=== PATIENT | male | born 1955 | race Caucasian/White ===

== ENCOUNTER 2018-11-20 15:27 | Inpatient (IN) ==
[2018-11-20] MEDS ORDERED: HYDROmorphone 2 MG/1 ML VIAL IV STA (15:35)
[2018-11-20] MEDS ORDERED: ONDANSETRON 4 MG/2 ML VIAL IV STA (15:35)
[2018-11-20] MEDS ORDERED: GENTAMICIN INJ 140 MG in SODIUM CHLORIDE 0.9% 100 ML IV STA (15:36)
[2018-11-20] MEDS ORDERED: PROPOFOL 200 MG/20 ML VIAL IV ONE ×2 (15:48→18:06)
[2018-11-20 16:11] LABS: Basophils % 0.4 % (0.0-0.8); Eosinophils # 0.1 10*3/uL (0.0-0.87); Eosinophils % 0.9 % (0.00-10.9); Hematocrit 40.8 VOL% (42.0-52.0); Hemoglobin 12.9 GM/DL (14.0-18.0); Immature Granulocytes % 0.7 %; Immature Granulocytes Absolute 0.08 #; Lymphocytes # 1.2 10*3/uL (1.4-4.0); Lymphocytes % 10.2 % (21.2-54.2); Mean Corpuscular HGB Conc 31.6 GM/DL (32-36); Mean Corpuscular Volume 97.8 FL (87-102); Mean Platelet Volume 9.5 FL (9.6-12.0); Neutrophils % 79.8 % (38.7-73.9); Platelet Count 245 T/CUMM (130-400); Red Blood Count 4.17 MC/CUMM (3.8-5.5); Red Cell Distribution Width 13.4 % (9.3-17.3); White Blood Count 11.3 T/CUMM (4-12)
[2018-11-20] MEDS ORDERED: DIPH/TET/ACEL PERT BOOSTER VACCINE 0.5 ML VIAL IM ONE ×2 (16:15→16:16)
[2018-11-20 16:22] LABS: PT Patient Result 10.6 SECS (9.6-12.2); Partial Thromboplastin Time 23.7 SECS (20.8-36.0)
[2018-11-20] MEDS ORDERED: LACTULOSE 20 GM/30 ML UDCUP PO PRN (16:27)
[2018-11-20] MEDS ORDERED: MAGNESIUM HYDROXIDE SUSP 30 ML UDCUP PO PRN (16:27)
[2018-11-20] MEDS ORDERED: ONDANSETRON 4 MG/2 ML VIAL IV PRN ×2 (16:27→16:40)
[2018-11-20] MEDS ORDERED: PROMETHAZINE 25 MG/1 ML VIAL IM PRN (16:27)
[2018-11-20] MEDS ORDERED: BISACODYL 10 MG SUPP RECTAL PRN (16:27)
[2018-11-20] MEDS ORDERED: DEXTROSE 50% 25 GM/50 ML VIAL IV PRN (16:32)
[2018-11-20] MEDS ORDERED: GLUCAGON 1 MG VIAL IM PRN (16:32)
[2018-11-20 16:34] LABS: Albumin 3.6 G/DL (3.4-5.0); Bilirubin,Total 0.4 MG/DL (0.2-1.0); Calcium 9.1 MG/DL (8.5-10.1); Osmolality,Calculated 278.8 MOS/KG (273-304); Total Protein 7.6 G/DL (6.4-8.3)
[2018-11-20] MEDS ORDERED: MEPERIDINE 25 MG/1 ML VIAL IV PRN (16:40)
[2018-11-20] MEDS ORDERED: PROMETHAZINE INJ 25 MG in SODIUM CHLORIDE 0.9% 50 ML IV PRN (16:40)
[2018-11-20] MEDS ORDERED: SUGAMMADEX 200 MG/2 ML VIAL IV ONE (17:56)
[2018-11-20] MEDS ORDERED: ALBUTEROL/IPRATROPIUM 3 ML NEB RESP TX ONE (17:58)
[2018-11-20] MEDS ORDERED: DESFLURANE 1 UNIT/15 MINUTE INH ONE (18:06)
[2018-11-20] MEDS ORDERED: GLYCOPYRROLATE 0.4 MG/2 ML VIAL ONE (18:07)
[2018-11-20] MEDS ORDERED: SUCCINYLCHOLINE 200 MG/10 ML VIAL ONE (18:07)
[2018-11-20] MEDS ORDERED: NEOSTIGMINE 10 MG/10 ML VIAL ONE (18:07)
[2018-11-20] MEDS ORDERED: ROCURONIUM 100 MG/10 ML VIAL IV ONE (18:07)
[2018-11-20] MEDS ORDERED: ePHEDrine 50 MG/ML AMP ONE (18:07)
[2018-11-20] MEDS ORDERED: PHENYLEPHRINE 1 MG/10 ML SYRINGE IV ONE (18:07)
[2018-11-20] MEDS ORDERED: LACTATED RINGERS 1,000 ML IV ONE (18:07)
[2018-11-20] MEDS ORDERED: ACETAMINOPHEN 1,000 MG/100 ML VIAL IV ONE (18:07)
[2018-11-20] MEDS: LACTATED RINGERS 1,000 ML IV SCH (19:00)
[2018-11-20] MEDS: SIMVASTATIN 20 MG TABLET PO SCH (21:28)
[2018-11-20] MEDS: AMITRIPTYLINE 50 MG TABLET PO SCH (21:29)
[2018-11-20] MEDS: metFORMIN 500 MG TABLET PO SCH (21:29)
[2018-11-20] MEDS: INSULIN REGULAR 100 UNIT/ML SUBCUT SCH (21:31)
[2018-11-20] MEDS: INSULIN ASPART PROTAMINE/ASPART 70/30 100 UNIT/ML SUBCUT SCH (21:31)
[2018-11-20] MEDS: MORPHINE 4 MG/1 ML VIAL IV PRN (23:23)
[2018-11-21] MEDS: ceFAZolin 1,000 MG in SYRINGE 1 EACH IV SCH ×3 (00:59→16:24)
[2018-11-21] MEDS: MORPHINE 4 MG/1 ML VIAL IV PRN ×2 (03:03→12:51)
[2018-11-21] MEDS: LACTATED RINGERS 1,000 ML IV SCH ×2 (04:36→12:30)
[2018-11-21] MEDS: LEVOTHYROXINE 175 MCG TABLET PO SCH (06:55)
[2018-11-21] MEDS: GABAPENTIN 600 MG TABLET PO PRN (07:19)
[2018-11-21] MEDS: INSULIN REGULAR 100 UNIT/ML SUBCUT SCH ×4 (07:30→21:13)
[2018-11-21] MEDS: metFORMIN 500 MG TABLET PO SCH ×2 (09:00→20:53)
[2018-11-21] MEDS ORDERED: LISINOPRIL 5 MG TABLET PO SCH (09:00)
[2018-11-21] MEDS: ASPIRIN EC 81 MG TABLET PO SCH (09:00)
[2018-11-21] MEDS: INSULIN ASPART PROTAMINE/ASPART 70/30 100 UNIT/ML SUBCUT SCH ×2 (09:00→21:09)
[2018-11-21] MEDS ORDERED: FUROSEMIDE 40 MG/4 ML VIAL IV ONE (16:35)
[2018-11-21] MEDS: ENOXAPARIN 40 MG/0.4 ML SYRINGE SUBCUT SCH (16:45)
[2018-11-21] MEDS: ALBUTEROL/IPRATROPIUM 3 ML NEB RESP TX SCH ×2 (19:39→23:43)
[2018-11-21] MEDS: SIMVASTATIN 20 MG TABLET PO SCH (20:53)
[2018-11-21] MEDS: AMITRIPTYLINE 50 MG TABLET PO SCH (20:53)
[2018-11-21] MEDS: methylPREDNISolone SOD SUC 40 MG/1 ML VIAL IV SCH (21:21)
[2018-11-22] MEDS: ceFAZolin 1,000 MG in SYRINGE 1 EACH IV SCH ×3 (01:13→16:16)
[2018-11-22] MEDS: ALBUTEROL/IPRATROPIUM 3 ML NEB RESP TX SCH ×6 (02:20→22:51)
[2018-11-22 05:29] LABS: Basophils % 0.2 % (0.0-0.8); Hematocrit 36.2 VOL% (42.0-52.0); Hemoglobin 11.7 GM/DL (14.0-18.0); Immature Granulocytes % 0.7 %; Immature Granulocytes Absolute 0.09 #; Lymphocytes # 0.6 10*3/uL (1.4-4.0); Lymphocytes % 4.2 % (21.2-54.2); Mean Corpuscular HGB Conc 32.3 GM/DL (32-36); Mean Corpuscular Volume 97.1 FL (87-102); Mean Platelet Volume 9.4 FL (9.6-12.0); Monocytes % 8.1 % (1.7-12.7); Neutrophils % 86.8 % (38.7-73.9); Platelet Count 200 T/CUMM (130-400); Red Blood Count 3.73 MC/CUMM (3.8-5.5); Red Cell Distribution Width 13.9 % (9.3-17.3); White Blood Count 13.1 T/CUMM (4-12)
[2018-11-22] MEDS: LACTATED RINGERS 1,000 ML IV SCH ×2 (05:53→08:30)
[2018-11-22 05:55] LABS: Calcium 9.1 MG/DL (8.5-10.1); Osmolality,Calculated 276.2 MOS/KG (273-304)
[2018-11-22 06:02] LABS: Band Neutrophils 3 % (0-10); Lymphocytes 6 % (20-55); Platelet Estimate Normal; Segmented Neutrophils 89 % (50-85); Total Cells Counted 100
[2018-11-22] MEDS: LEVOTHYROXINE 175 MCG TABLET PO SCH (06:12)
[2018-11-22] MEDS: ASPIRIN EC 81 MG TABLET PO SCH (08:33)
[2018-11-22] MEDS: methylPREDNISolone SOD SUC 40 MG/1 ML VIAL IV SCH ×3 (08:35→23:02)
[2018-11-22] MEDS: INSULIN ASPART PROTAMINE/ASPART 70/30 100 UNIT/ML SUBCUT SCH ×2 (08:38→20:22)
[2018-11-22] MEDS: INSULIN REGULAR 100 UNIT/ML SUBCUT SCH ×4 (08:39→23:02)
[2018-11-22] MEDS: metFORMIN 500 MG TABLET PO SCH ×2 (09:26→20:03)
[2018-11-22] MEDS: GABAPENTIN 600 MG TABLET PO PRN ×2 (12:10→20:03)
[2018-11-22] MEDS: MORPHINE 4 MG/1 ML VIAL IV PRN (16:27)
[2018-11-22] MEDS: ENOXAPARIN 40 MG/0.4 ML SYRINGE SUBCUT SCH (17:22)
[2018-11-22] MEDS: AMITRIPTYLINE 50 MG TABLET PO SCH (20:03)
[2018-11-22] MEDS: SIMVASTATIN 20 MG TABLET PO SCH (20:03)
[2018-11-22] MEDS ORDERED: DULoxetine 30 MG CAPSULE PO SCH (21:00)
[2018-11-23] MEDS: ceFAZolin 1,000 MG in SYRINGE 1 EACH IV SCH ×3 (00:49→16:48)
[2018-11-23] MEDS: ALBUTEROL/IPRATROPIUM 3 ML NEB RESP TX SCH ×6 (02:43→23:40)
[2018-11-23 06:11] LABS: Free T4 (Free Thyroxine) 1.13 NG/DL (0.76-1.46); Thyroid Stimulating Hormone 1.09 uIU/ml (0.358-3.74)
[2018-11-23] MEDS: sitaGLIPtin 25 MG TABLET PO SCH (08:55)
[2018-11-23] MEDS: metFORMIN 500 MG TABLET PO SCH ×2 (09:01→20:47)
[2018-11-23] MEDS: CYCLOBENZAPRINE 10 MG TABLET PO PRN ×3 (09:01→20:48)
[2018-11-23] MEDS: LEVOTHYROXINE 175 MCG TABLET PO SCH (09:01)
[2018-11-23] MEDS: INSULIN REGULAR 100 UNIT/ML SUBCUT SCH ×4 (09:03→20:50)
[2018-11-23] MEDS: INSULIN ASPART PROTAMINE/ASPART 70/30 100 UNIT/ML SUBCUT SCH ×2 (09:03→20:49)
[2018-11-23] MEDS: ASPIRIN EC 81 MG TABLET PO SCH (09:05)
[2018-11-23] MEDS: methylPREDNISolone SOD SUC 40 MG/1 ML VIAL IV SCH (09:14)
[2018-11-23 10:40] LABS: Basophils % 0.1 % (0.0-0.8); Hematocrit 37.4 VOL% (42.0-52.0); Hemoglobin 11.7 GM/DL (14.0-18.0); Immature Granulocytes % 0.7 %; Immature Granulocytes Absolute 0.09 #; Lymphocytes # 0.9 10*3/uL (1.4-4.0); Lymphocytes % 6.4 % (21.2-54.2); Mean Corpuscular HGB Conc 31.3 GM/DL (32-36); Mean Corpuscular Volume 97.9 FL (87-102); Mean Platelet Volume 9.3 FL (9.6-12.0); Monocytes % 6.3 % (1.7-12.7); Neutrophils % 86.5 % (38.7-73.9); Platelet Count 249 T/CUMM (130-400); Red Blood Count 3.82 MC/CUMM (3.8-5.5); Red Cell Distribution Width 13.9 % (9.3-17.3); White Blood Count 13.7 T/CUMM (4-12)
[2018-11-23 11:03] LABS: Calcium 9.9 MG/DL (8.5-10.1); Osmolality,Calculated 283.1 MOS/KG (273-304)
[2018-11-23 11:18] LABS: CKMB % 0.4 %; Troponin I < 0.015 NG/ML (0.00-0.045)
[2018-11-23] MEDS: ENOXAPARIN 40 MG/0.4 ML SYRINGE SUBCUT SCH (16:40)
[2018-11-23] MEDS: DULoxetine 30 MG CAPSULE PO SCH (20:47)
[2018-11-23] MEDS: AMITRIPTYLINE 50 MG TABLET PO SCH (20:48)
[2018-11-23] MEDS: GABAPENTIN 600 MG TABLET PO PRN (20:48)
[2018-11-23] MEDS: SIMVASTATIN 20 MG TABLET PO SCH (20:48)
[2018-11-24] MEDS: ceFAZolin 1,000 MG in SYRINGE 1 EACH IV SCH ×3 (02:25→16:51)
[2018-11-24] MEDS: ALBUTEROL/IPRATROPIUM 3 ML NEB RESP TX SCH ×6 (04:10→23:04)
[2018-11-24] MEDS ORDERED: DIAZEPAM 5 MG TABLET PO ONE (06:00)
[2018-11-24] MEDS ORDERED: FAMOTIDINE 20 MG TABLET PO ONE (06:00)
[2018-11-24] MEDS: LEVOTHYROXINE 175 MCG TABLET PO SCH (06:06)
[2018-11-24] MEDS ORDERED: GLUCAGON 1 MG VIAL IM PRN (07:07)
[2018-11-24] MEDS ORDERED: DEXTROSE 10% 250 ML BAG IV PRN (07:07)
[2018-11-24 07:27] LABS: Basophils % 0.2 % (0.0-0.8); Eosinophils % 0.2 % (0.00-10.9); Hematocrit 35.8 VOL% (42.0-52.0); Hemoglobin 11.4 GM/DL (14.0-18.0); Immature Granulocytes % 0.8 %; Immature Granulocytes Absolute 0.09 #; Lymphocytes # 1.3 10*3/uL (1.4-4.0); Lymphocytes % 11.8 % (21.2-54.2); Mean Corpuscular HGB Conc 31.8 GM/DL (32-36); Mean Corpuscular Volume 98.4 FL (87-102); Mean Platelet Volume 9.7 FL (9.6-12.0); Monocytes % 10.4 % (1.7-12.7); Neutrophils % 76.6 % (38.7-73.9); Platelet Count 263 T/CUMM (130-400); Red Blood Count 3.64 MC/CUMM (3.8-5.5); Red Cell Distribution Width 13.9 % (9.3-17.3)
[2018-11-24] MEDS ORDERED: GENTAMICIN 80 MG/2 ML VIAL ONE (07:27)
[2018-11-24] MEDS ORDERED: LACTATED RINGERS 1,000 ML IV SCH (07:30)
[2018-11-24 07:42] LABS: Calcium 9.3 MG/DL (8.5-10.1); Osmolality,Calculated 286.7 MOS/KG (273-304)
[2018-11-24] MEDS ORDERED: fentaNYL 100 MCG/2 ML VIAL ONE (08:21)
[2018-11-24] MEDS ORDERED: ONDANSETRON 4 MG/2 ML VIAL ONE (08:21)
[2018-11-24] MEDS ORDERED: MIDAZOLAM 2 MG/2 ML VIAL ONE (08:21)
[2018-11-24] MEDS ORDERED: PROPOFOL 200 MG/20 ML VIAL IV ONE (08:21)
[2018-11-24] MEDS ORDERED: ACETAMINOPHEN 1,000 MG/100 ML VIAL IV ONE (08:21)
[2018-11-24] MEDS ORDERED: SODIUM CHLORIDE 0.9% 100 ML IV ONE (08:22)
[2018-11-24] MEDS ORDERED: SEVOFLURANE 1 UNIT/15 MINUTE INH ONE (08:22)
[2018-11-24] MEDS ORDERED: PHENYLEPHRINE 1 MG/10 ML SYRINGE IV ONE (08:22)
[2018-11-24] MEDS: INSULIN REGULAR 100 UNIT/ML SUBCUT SCH ×4 (11:07→20:28)
[2018-11-24] MEDS: sitaGLIPtin 25 MG TABLET PO SCH (11:08)
[2018-11-24] MEDS: metFORMIN 500 MG TABLET PO SCH ×2 (11:08→20:28)
[2018-11-24] MEDS: INSULIN ASPART PROTAMINE/ASPART 70/30 100 UNIT/ML SUBCUT SCH ×2 (11:08→20:28)
[2018-11-24] MEDS: ASPIRIN EC 81 MG TABLET PO SCH (11:08)
[2018-11-24] MEDS: ENOXAPARIN 40 MG/0.4 ML SYRINGE SUBCUT SCH (16:53)
[2018-11-24] MEDS: DULoxetine 30 MG CAPSULE PO SCH (20:32)
[2018-11-24] MEDS: AMITRIPTYLINE 50 MG TABLET PO SCH (20:32)
[2018-11-24] MEDS: SIMVASTATIN 20 MG TABLET PO SCH (20:32)
[2018-11-25] MEDS: ceFAZolin 1,000 MG in SYRINGE 1 EACH IV SCH ×2 (01:28→08:24)
[2018-11-25] MEDS: ALBUTEROL/IPRATROPIUM 3 ML NEB RESP TX SCH ×3 (03:27→11:14)
[2018-11-25] MEDS: MORPHINE 4 MG/1 ML VIAL IV PRN (05:35)
[2018-11-25] MEDS: LEVOTHYROXINE 175 MCG TABLET PO SCH (06:00)
[2018-11-25] MEDS: metFORMIN 500 MG TABLET PO SCH (08:20)
[2018-11-25] MEDS: ASPIRIN EC 81 MG TABLET PO SCH (08:20)
[2018-11-25] MEDS: GABAPENTIN 600 MG TABLET PO PRN (08:20)
[2018-11-25] MEDS: sitaGLIPtin 25 MG TABLET PO SCH (08:20)
[2018-11-25] MEDS: INSULIN ASPART PROTAMINE/ASPART 70/30 100 UNIT/ML SUBCUT SCH (08:22)
[2018-11-25] MEDS: INSULIN REGULAR 100 UNIT/ML SUBCUT SCH (08:22)
[2018-11-25 11:47] VITALS: BP 90/60
== END 2018-11-25 13:15 | disposition home or self-care (01) | DRG 494 ==
LOC: EDUNIT# → EDBD → N.ED 15:27 → SUATTDRO 16:27 → N.EDINP 16:27 → N.3E 16:30
PROVIDERS: ADMIT Orthopaedic Surgery; ATTEND Orthopaedic Surgery

== ENCOUNTER 2018-12-09 14:52 | Inpatient (IN) ==
[2018-12-09] MEDS ORDERED: TEMAZEPAM 15 MG CAPSULE PO PRN (16:29)
[2018-12-09] MEDS ORDERED: metFORMIN 500 MG TABLET PO SCH (17:00)
[2018-12-09] MEDS ORDERED: GLUCAGON 1 MG VIAL IM PRN ×2 (17:03→20:26)
[2018-12-09] MEDS ORDERED: DEXTROSE 10% 25 GM/250 ML BAG IV PRN (17:03)
[2018-12-09 17:13] LABS: Basophils # 0.1 10*3/uL (0.0-0.2); Basophils % 0.5 % (0.0-0.8); Eosinophils # 0.1 10*3/uL (0.0-0.87); Eosinophils % 0.9 % (0.00-10.9); Hematocrit 36.4 VOL% (42.0-52.0); Hemoglobin 11.4 GM/DL (14.0-18.0); Immature Granulocytes % 0.7 %; Immature Granulocytes Absolute 0.08 #; Lymphocytes # 1.1 10*3/uL (1.4-4.0); Lymphocytes % 9.1 % (21.2-54.2); Mean Corpuscular HGB Conc 31.3 GM/DL (32-36); Mean Corpuscular Volume 98.1 FL (87-102); Mean Platelet Volume 8.3 FL (9.6-12.0); Monocytes % 9.2 % (1.7-12.7); Neutrophils % 79.6 % (38.7-73.9); Platelet Count 457 T/CUMM (130-400); Red Blood Count 3.71 MC/CUMM (3.8-5.5); Red Cell Distribution Width 13.3 % (9.3-17.3); White Blood Count 11.8 T/CUMM (4-12)
[2018-12-09 17:35] LABS: Osmolality,Calculated 270.2 MOS/KG (273-304)
[2018-12-09] MEDS: MORPHINE 4 MG/1 ML VIAL IV PRN (18:25)
[2018-12-09] MEDS: ONDANSETRON 4 MG/2 ML VIAL IV PRN (18:38)
[2018-12-09] MEDS ORDERED: DEXTROSE 10% 250 ML BAG IV PRN (20:26)
[2018-12-09] MEDS ORDERED: INSULIN REGULAR 100 UNIT/ML SUBCUT SCH (21:00)
[2018-12-09] MEDS ORDERED: SIMVASTATIN 20 MG TABLET PO SCH (21:00)
[2018-12-09] MEDS ORDERED: AMITRIPTYLINE 50 MG TABLET PO SCH (21:00)
[2018-12-09] MEDS: INSULIN LISPRO 100 UNIT/ML SUBCUT SCH (22:14)
[2018-12-09] MEDS: PIPERACILLIN/TAZOBACTAM 3,375 MG in SODIUM CHLORIDE 0.9% 100 ML IV SCH (22:31)
[2018-12-09] MEDS: AMITRIPTYLINE 50 MG TABLET PO SCH (22:32)
[2018-12-09] MEDS: SIMVASTATIN 20 MG TABLET PO SCH (22:32)
[2018-12-09] MEDS: SODIUM CHLORIDE 0.9% 1,000 ML IV SCH (22:34)
[2018-12-10] MEDS ORDERED: SODIUM CHLORIDE 0.9% 1,000 ML IV ONE ×3 (00:55→11:23)
[2018-12-10] MEDS ORDERED: VANCOMYCIN INJ 1,500 MG in SODIUM CHLORIDE 0.9% 500 ML IV SCH (01:00)
[2018-12-10 01:39] LABS: Basophils # 0.1 10*3/uL (0.0-0.2); Basophils % 0.5 % (0.0-0.8); Eosinophils # 0.2 10*3/uL (0.0-0.87); Eosinophils % 1.5 % (0.00-10.9); Hematocrit 31.3 VOL% (42.0-52.0); Hemoglobin 9.8 GM/DL (14.0-18.0); Immature Granulocytes % 0.5 %; Immature Granulocytes Absolute 0.05 #; Lymphocytes # 2.5 10*3/uL (1.4-4.0); Lymphocytes % 22.9 % (21.2-54.2); Mean Corpuscular HGB Conc 31.3 GM/DL (32-36); Mean Corpuscular Volume 96.9 FL (87-102); Mean Platelet Volume 8.3 FL (9.6-12.0); Monocytes % 10.7 % (1.7-12.7); Neutrophils % 63.9 % (38.7-73.9); Platelet Count 395 T/CUMM (130-400); Red Blood Count 3.23 MC/CUMM (3.8-5.5); Red Cell Distribution Width 13.5 % (9.3-17.3); White Blood Count 10.9 T/CUMM (4-12)
[2018-12-10 02:03] LABS: Calcium 8.1 MG/DL (8.5-10.1); Osmolality,Calculated 276.1 MOS/KG (273-304); Risk Ratio 2.76; VLDL CHOLESTEROL 23.6 MG/DL
[2018-12-10] MEDS: MORPHINE 4 MG/1 ML VIAL IV PRN ×4 (04:24→19:08)
[2018-12-10] MEDS: SODIUM CHLORIDE 0.9% 1,000 ML IV SCH ×2 (04:30→11:59)
[2018-12-10] MEDS ORDERED: LEVOTHYROXINE 75 MCG TABLET PO SCH (06:30)
[2018-12-10] MEDS: PIPERACILLIN/TAZOBACTAM 3,375 MG in SODIUM CHLORIDE 0.9% 100 ML IV SCH ×3 (06:44→21:51)
[2018-12-10] MEDS: LEVOTHYROXINE 175 MCG TABLET PO SCH (07:10)
[2018-12-10] MEDS ORDERED: INSULIN ASPART PROTAMINE/ASPART 70/30 100 UNIT/ML SUBCUT SCH (07:30)
[2018-12-10] MEDS ORDERED: glipiZIDE 5 MG TABLET PO SCH (07:30)
[2018-12-10] MEDS ORDERED: ASPIRIN CHEW 81 MG TABLET PO SCH (09:00)
[2018-12-10] MEDS ORDERED: lisinopriL 5 MG TABLET PO SCH (09:00)
[2018-12-10] MEDS: lisinopriL 5 MG TABLET PO SCH (09:21)
[2018-12-10] MEDS: INSULIN LISPRO 100 UNIT/ML SUBCUT SCH ×4 (09:24→21:45)
[2018-12-10] MEDS: ASPIRIN EC 81 MG TABLET PO SCH (09:24)
[2018-12-10] MEDS ORDERED: ALBUTEROL/IPRATROPIUM 3 ML NEB RESP TX ONE (10:05)
[2018-12-10 10:17] LABS: Allen Test Positive; Pt O2 Delivery Device Other
[2018-12-10 10:18] LABS: ABG Base Excess -1.5 MMOL/L (-2.5-2.5); ABG HCO3 23.2 MMOL/L (20-26); ABG PCO2 41.5 MM HG (35-48); ABG PH 7.367 (7.35-7.45); ABG TCO2 21.2 MMOL/L (23-27)
[2018-12-10 10:44] LABS: Troponin I < 0.015 NG/ML (0.00-0.045)
[2018-12-10] MEDS ORDERED: LACTULOSE 20 GM/30 ML UDCUP PO PRN (11:07)
[2018-12-10] MEDS ORDERED: PROMETHAZINE 25 MG/1 ML VIAL IM PRN (11:07)
[2018-12-10] MEDS ORDERED: BISACODYL 10 MG SUPP RECTAL PRN (11:07)
[2018-12-10] MEDS ORDERED: diphenhydrAMINE CAP 25 MG CAPSULE PO PRN (11:07)
[2018-12-10] MEDS ORDERED: MAGNESIUM HYDROXIDE SUSP 30 ML UDCUP PO PRN (11:07)
[2018-12-10] MEDS ORDERED: fentaNYL 100 MCG/2 ML VIAL ONE (11:22)
[2018-12-10] MEDS ORDERED: MIDAZOLAM 2 MG/2 ML VIAL ONE (11:23)
[2018-12-10] MEDS ORDERED: ETOMIDATE 40 MG/20 ML VIAL IV ONE (11:23)
[2018-12-10] MEDS ORDERED: SEVOFLURANE 1 UNIT/15 MINUTE INH ONE (11:23)
[2018-12-10] MEDS ORDERED: ONDANSETRON 4 MG/2 ML VIAL ONE (11:23)
[2018-12-10] MEDS ORDERED: PHENYLEPHRINE 1 MG/10 ML SYRINGE IV ONE (11:23)
[2018-12-10] MEDS ORDERED: propofoL 200 MG/20 ML VIAL IV ONE (11:23)
[2018-12-10] MEDS: LACTATED RINGERS 1,000 ML IV SCH (12:22)
[2018-12-10] MEDS: INSULIN ASPART PROTAMINE/ASPART 70/30 100 UNIT/ML SUBCUT SCH (17:14)
[2018-12-10] MEDS: metFORMIN 500 MG TABLET PO SCH (21:44)
[2018-12-10] MEDS: AMITRIPTYLINE 50 MG TABLET PO SCH (21:45)
[2018-12-10] MEDS: SIMVASTATIN 20 MG TABLET PO SCH (21:45)
[2018-12-11] MEDS: SODIUM CHLORIDE 0.9% 1,000 ML IV SCH ×3 (00:47→22:17)
[2018-12-11] MEDS: VANCOMYCIN INJ 1,500 MG in SODIUM CHLORIDE 0.9% 500 ML IV SCH (02:29)
[2018-12-11] MEDS: LEVOTHYROXINE 175 MCG TABLET PO SCH (06:15)
[2018-12-11] MEDS: PIPERACILLIN/TAZOBACTAM 3,375 MG in SODIUM CHLORIDE 0.9% 100 ML IV SCH ×3 (07:16→22:40)
[2018-12-11 10:50] LABS: Calcium 8.8 MG/DL (8.5-10.1); Osmolality,Calculated 284.4 MOS/KG (273-304)
[2018-12-11] MEDS: INSULIN LISPRO 100 UNIT/ML SUBCUT SCH ×4 (10:56→21:26)
[2018-12-11] MEDS: INSULIN ASPART PROTAMINE/ASPART 70/30 100 UNIT/ML SUBCUT SCH ×2 (10:56→17:12)
[2018-12-11] MEDS: ASPIRIN EC 81 MG TABLET PO SCH (11:01)
[2018-12-11] MEDS: metFORMIN 500 MG TABLET PO SCH ×2 (11:01→21:22)
[2018-12-11] MEDS: lisinopriL 5 MG TABLET PO SCH (11:03)
[2018-12-11] MEDS: MORPHINE 4 MG/1 ML VIAL IV PRN ×3 (11:07→21:22)
[2018-12-11] MEDS: SIMVASTATIN 20 MG TABLET PO SCH (21:22)
[2018-12-11] MEDS: AMITRIPTYLINE 50 MG TABLET PO SCH (21:22)
[2018-12-11] MEDS: LACTATED RINGERS 1,000 ML IV SCH (22:43)
[2018-12-12] MEDS: VANCOMYCIN INJ 1,500 MG in SODIUM CHLORIDE 0.9% 500 ML IV SCH (00:55)
[2018-12-12] MEDS: PIPERACILLIN/TAZOBACTAM 3,375 MG in SODIUM CHLORIDE 0.9% 100 ML IV SCH ×3 (05:58→21:22)
[2018-12-12] MEDS: LEVOTHYROXINE 175 MCG TABLET PO SCH (06:00)
[2018-12-12 06:05] LABS: Calcium 8.7 MG/DL (8.5-10.1); Osmolality,Calculated 283.3 MOS/KG (273-304)
[2018-12-12] MEDS ORDERED: ALBUTEROL/IPRATROPIUM 3 ML NEB RESP TX ONE (07:28)
[2018-12-12] MEDS: SODIUM CHLORIDE 0.9% 1,000 ML IV SCH ×3 (08:04→21:02)
[2018-12-12] MEDS: INSULIN LISPRO 100 UNIT/ML SUBCUT SCH ×4 (08:04→21:21)
[2018-12-12] MEDS: INSULIN ASPART PROTAMINE/ASPART 70/30 100 UNIT/ML SUBCUT SCH ×2 (08:04→17:07)
[2018-12-12] MEDS ORDERED: DEXTROSE 50% 25 GM/50 ML VIAL IV PRN (08:44)
[2018-12-12] MEDS ORDERED: GLUCAGON 1 MG VIAL IM PRN (08:44)
[2018-12-12] MEDS ORDERED: MIDAZOLAM 2 MG/2 ML VIAL ONE (09:00)
[2018-12-12] MEDS ORDERED: DEXAMETHASONE 4 MG/1 ML VIAL ONE (09:00)
[2018-12-12] MEDS ORDERED: ONDANSETRON 4 MG/2 ML VIAL ONE (09:00)
[2018-12-12] MEDS ORDERED: SEVOFLURANE 1 UNIT/15 MINUTE INH ONE (09:00)
[2018-12-12] MEDS ORDERED: fentaNYL 100 MCG/2 ML VIAL ONE (09:00)
[2018-12-12] MEDS ORDERED: LIDOCAINE 2% 5 ML VIAL ONE (09:00)
[2018-12-12] MEDS ORDERED: propofoL 200 MG/20 ML VIAL IV ONE (09:00)
[2018-12-12] MEDS ORDERED: PHENYLEPHRINE 1 MG/10 ML SYRINGE IV ONE (09:01)
[2018-12-12] MEDS ORDERED: ETOMIDATE 40 MG/20 ML VIAL IV ONE (09:01)
[2018-12-12] MEDS: ASPIRIN EC 81 MG TABLET PO SCH (10:57)
[2018-12-12] MEDS: POLYETHYLENE GLYCOL POWDER 17 GM PACK PO SCH ×2 (10:57→21:22)
[2018-12-12] MEDS: DOCUSATE/SENNA 50-8.6 MG TABLET PO SCH ×2 (10:57→21:22)
[2018-12-12] MEDS: metFORMIN 500 MG TABLET PO SCH ×2 (10:58→21:21)
[2018-12-12] MEDS: LACTATED RINGERS 1,000 ML IV SCH ×2 (10:58→23:58)
[2018-12-12] MEDS: lisinopriL 5 MG TABLET PO SCH (10:58)
[2018-12-12] MEDS ORDERED: INSULIN REGULAR 100 UNIT/ML SUBCUT SCH (11:30)
[2018-12-12] MEDS: MORPHINE 4 MG/1 ML VIAL IV PRN ×2 (16:10→19:18)
[2018-12-12] MEDS: AMITRIPTYLINE 50 MG TABLET PO SCH (21:20)
[2018-12-12] MEDS: SIMVASTATIN 20 MG TABLET PO SCH (21:22)
[2018-12-13] MEDS: VANCOMYCIN INJ 1,500 MG in SODIUM CHLORIDE 0.9% 500 ML IV SCH (01:26)
[2018-12-13] MEDS: SODIUM CHLORIDE 0.9% 1,000 ML IV SCH ×2 (04:04→14:04)
[2018-12-13 06:07] LABS: Basophils % 0.4 % (0.0-0.8); Eosinophils # 0.1 10*3/uL (0.0-0.87); Eosinophils % 1.8 % (0.00-10.9); Hematocrit 29.3 VOL% (42.0-52.0); Hemoglobin 9.2 GM/DL (14.0-18.0); Immature Granulocytes % 0.4 %; Immature Granulocytes Absolute 0.03 #; Lymphocytes # 1.7 10*3/uL (1.4-4.0); Lymphocytes % 23.9 % (21.2-54.2); Mean Corpuscular HGB Conc 31.4 GM/DL (32-36); Mean Corpuscular Volume 96.1 FL (87-102); Mean Platelet Volume 8.7 FL (9.6-12.0); Monocytes % 7.6 % (1.7-12.7); Neutrophils % 65.9 % (38.7-73.9); Platelet Count 383 T/CUMM (130-400); Red Blood Count 3.05 MC/CUMM (3.8-5.5); Red Cell Distribution Width 12.9 % (9.3-17.3); White Blood Count 7.1 T/CUMM (4-12)
[2018-12-13 06:14] LABS: Calcium 8.8 MG/DL (8.5-10.1); Osmolality,Calculated 281.4 MOS/KG (273-304)
[2018-12-13] MEDS: PIPERACILLIN/TAZOBACTAM 3,375 MG in SODIUM CHLORIDE 0.9% 100 ML IV SCH ×2 (06:39→14:05)
[2018-12-13] MEDS: LEVOTHYROXINE 175 MCG TABLET PO SCH (06:39)
[2018-12-13] MEDS: INSULIN ASPART PROTAMINE/ASPART 70/30 100 UNIT/ML SUBCUT SCH ×2 (08:04→17:11)
[2018-12-13] MEDS: INSULIN LISPRO 100 UNIT/ML SUBCUT SCH ×4 (08:04→21:29)
[2018-12-13] MEDS: MORPHINE 4 MG/1 ML VIAL IV PRN ×3 (09:04→21:23)
[2018-12-13] MEDS: ASPIRIN EC 81 MG TABLET PO SCH (09:10)
[2018-12-13] MEDS: metFORMIN 500 MG TABLET PO SCH ×2 (09:10→21:29)
[2018-12-13] MEDS: lisinopriL 5 MG TABLET PO SCH (09:10)
[2018-12-13] MEDS: POLYETHYLENE GLYCOL POWDER 17 GM PACK PO SCH ×2 (09:10→21:28)
[2018-12-13] MEDS: DOCUSATE/SENNA 50-8.6 MG TABLET PO SCH ×2 (09:10→21:28)
[2018-12-13] MEDS: ENOXAPARIN 30 MG/0.3 ML SYRINGE SUBCUT SCH (09:47)
[2018-12-13] MEDS: SIMVASTATIN 20 MG TABLET PO SCH (21:23)
[2018-12-13] MEDS: AMITRIPTYLINE 50 MG TABLET PO SCH (21:23)
[2018-12-14] MEDS: PIPERACILLIN/TAZOBACTAM 3,375 MG in SODIUM CHLORIDE 0.9% 100 ML IV SCH ×3 (00:03→17:13)
[2018-12-14] MEDS: LACTATED RINGERS 1,000 ML IV SCH ×2 (04:29→15:53)
[2018-12-14] MEDS: SODIUM CHLORIDE 0.9% 1,000 ML IV SCH (04:31)
[2018-12-14] MEDS: VANCOMYCIN INJ 1,500 MG in SODIUM CHLORIDE 0.9% 500 ML IV SCH (06:34)
[2018-12-14] MEDS: LEVOTHYROXINE 175 MCG TABLET PO SCH (06:34)
[2018-12-14] MEDS: INSULIN ASPART PROTAMINE/ASPART 70/30 100 UNIT/ML SUBCUT SCH ×2 (08:06→16:24)
[2018-12-14] MEDS: INSULIN LISPRO 100 UNIT/ML SUBCUT SCH ×4 (08:06→21:08)
[2018-12-14] MEDS: lisinopriL 5 MG TABLET PO SCH (08:39)
[2018-12-14] MEDS: POLYETHYLENE GLYCOL POWDER 17 GM PACK PO SCH ×2 (08:39→21:08)
[2018-12-14] MEDS: metFORMIN 500 MG TABLET PO SCH ×2 (08:39→21:07)
[2018-12-14] MEDS: ASPIRIN EC 81 MG TABLET PO SCH (08:39)
[2018-12-14] MEDS: DOCUSATE/SENNA 50-8.6 MG TABLET PO SCH ×2 (08:39→21:09)
[2018-12-14] MEDS: ENOXAPARIN 30 MG/0.3 ML SYRINGE SUBCUT SCH (11:52)
[2018-12-14] MEDS: MORPHINE 4 MG/1 ML VIAL IV PRN (15:53)
[2018-12-14] MEDS: SIMVASTATIN 20 MG TABLET PO SCH (21:07)
[2018-12-14] MEDS: AMITRIPTYLINE 50 MG TABLET PO SCH (21:07)
[2018-12-15] MEDS: MORPHINE 4 MG/1 ML VIAL IV PRN ×3 (01:16→21:45)
[2018-12-15] MEDS: PIPERACILLIN/TAZOBACTAM 3,375 MG in SODIUM CHLORIDE 0.9% 100 ML IV SCH ×3 (01:17→17:29)
[2018-12-15 05:39] LABS: Basophils % 0.6 % (0.0-0.8); Eosinophils # 0.3 10*3/uL (0.0-0.87); Eosinophils % 4.4 % (0.00-10.9); Hematocrit 29.8 VOL% (42.0-52.0); Hemoglobin 9.5 GM/DL (14.0-18.0); Immature Granulocytes % 0.4 %; Immature Granulocytes Absolute 0.03 #; Lymphocytes # 1.4 10*3/uL (1.4-4.0); Lymphocytes % 20.6 % (21.2-54.2); Mean Corpuscular HGB Conc 31.9 GM/DL (32-36); Mean Corpuscular Volume 96.4 FL (87-102); Mean Platelet Volume 8.2 FL (9.6-12.0); Platelet Count 326 T/CUMM (130-400); Red Blood Count 3.09 MC/CUMM (3.8-5.5); White Blood Count 6.9 T/CUMM (4-12)
[2018-12-15 06:10] LABS: Calcium 8.9 MG/DL (8.5-10.1)
[2018-12-15] MEDS: VANCOMYCIN INJ 1,500 MG in SODIUM CHLORIDE 0.9% 500 ML IV SCH (06:14)
[2018-12-15] MEDS: LEVOTHYROXINE 175 MCG TABLET PO SCH (06:15)
[2018-12-15] MEDS: DOCUSATE/SENNA 50-8.6 MG TABLET PO SCH ×2 (09:26→21:44)
[2018-12-15] MEDS: ASPIRIN EC 81 MG TABLET PO SCH (09:26)
[2018-12-15] MEDS: metFORMIN 500 MG TABLET PO SCH ×2 (09:26→21:47)
[2018-12-15] MEDS: POLYETHYLENE GLYCOL POWDER 17 GM PACK PO SCH ×2 (09:27→21:45)
[2018-12-15] MEDS: INSULIN ASPART PROTAMINE/ASPART 70/30 100 UNIT/ML SUBCUT SCH ×2 (09:27→16:57)
[2018-12-15] MEDS: lisinopriL 5 MG TABLET PO SCH (09:27)
[2018-12-15] MEDS: INSULIN LISPRO 100 UNIT/ML SUBCUT SCH ×4 (09:34→21:49)
[2018-12-15] MEDS: ENOXAPARIN 30 MG/0.3 ML SYRINGE SUBCUT SCH (10:27)
[2018-12-15] MEDS: SIMVASTATIN 20 MG TABLET PO SCH (21:48)
[2018-12-15] MEDS: AMITRIPTYLINE 50 MG TABLET PO SCH (21:48)
[2018-12-16] MEDS: PIPERACILLIN/TAZOBACTAM 3,375 MG in SODIUM CHLORIDE 0.9% 100 ML IV SCH ×3 (01:46→22:51)
[2018-12-16] MEDS ORDERED: FAMOTIDINE 20 MG TABLET PO ONE (06:00)
[2018-12-16] MEDS ORDERED: ALBUTEROL/IPRATROPIUM 3 ML NEB RESP TX ONE (06:00)
[2018-12-16] MEDS: VANCOMYCIN INJ 1,500 MG in SODIUM CHLORIDE 0.9% 500 ML IV SCH (06:14)
[2018-12-16] MEDS: LEVOTHYROXINE 175 MCG TABLET PO SCH (06:14)
[2018-12-16] MEDS: INSULIN LISPRO 100 UNIT/ML SUBCUT SCH ×2 (09:44→12:39)
[2018-12-16] MEDS: DOCUSATE/SENNA 50-8.6 MG TABLET PO SCH ×2 (09:45→23:00)
[2018-12-16] MEDS: metFORMIN 500 MG TABLET PO SCH ×2 (09:45→22:34)
[2018-12-16] MEDS: lisinopriL 5 MG TABLET PO SCH (09:45)
[2018-12-16] MEDS: INSULIN ASPART PROTAMINE/ASPART 70/30 100 UNIT/ML SUBCUT SCH ×2 (09:45→16:47)
[2018-12-16] MEDS: POLYETHYLENE GLYCOL POWDER 17 GM PACK PO SCH ×2 (09:45→23:00)
[2018-12-16] MEDS: ASPIRIN EC 81 MG TABLET PO SCH (09:45)
[2018-12-16] MEDS ORDERED: GLUCAGON 1 MG VIAL IM PRN (10:46)
[2018-12-16] MEDS ORDERED: DEXTROSE 50% 25 GM/50 ML VIAL IV PRN (10:46)
[2018-12-16] MEDS ORDERED: LIDOCAINE 100 MG/5 ML SYRINGE ONE (10:49)
[2018-12-16] MEDS ORDERED: SEVOFLURANE 1 UNIT/15 MINUTE INH ONE (10:49)
[2018-12-16] MEDS ORDERED: propofoL 200 MG/20 ML VIAL IV ONE (10:49)
[2018-12-16] MEDS ORDERED: ePHEDrine 50 MG/ML AMP ONE (10:50)
[2018-12-16] MEDS ORDERED: fentaNYL 100 MCG/2 ML VIAL ONE (10:50)
[2018-12-16] MEDS ORDERED: DEXAMETHASONE 4 MG/1 ML VIAL ONE (10:50)
[2018-12-16] MEDS ORDERED: MIDAZOLAM 2 MG/2 ML VIAL ONE (10:50)
[2018-12-16] MEDS ORDERED: PHENYLEPHRINE 1 MG/10 ML SYRINGE IV ONE (10:51)
[2018-12-16] MEDS ORDERED: ONDANSETRON 4 MG/2 ML VIAL ONE (10:51)
[2018-12-16] MEDS ORDERED: ACETAMINOPHEN 1,000 MG/100 ML VIAL IV ONE (10:51)
[2018-12-16] MEDS: ENOXAPARIN 30 MG/0.3 ML SYRINGE SUBCUT SCH (12:03)
[2018-12-16] MEDS: INSULIN REGULAR 100 UNIT/ML SUBCUT SCH ×3 (12:39→22:33)
[2018-12-16] MEDS: MORPHINE 4 MG/1 ML VIAL IV PRN ×2 (19:29→22:49)
[2018-12-16] MEDS: TAMSULOSIN 0.4 MG CAPSULE PO SCH (22:32)
[2018-12-16] MEDS: AMITRIPTYLINE 50 MG TABLET PO SCH (22:32)
[2018-12-16] MEDS: SIMVASTATIN 20 MG TABLET PO SCH (22:33)
[2018-12-17 04:41] LABS: Basophils % 0.5 % (0.0-0.8); Eosinophils # 0.2 10*3/uL (0.0-0.87); Hematocrit 27.9 VOL% (42.0-52.0); Hemoglobin 8.7 GM/DL (14.0-18.0); Immature Granulocytes % 0.5 %; Immature Granulocytes Absolute 0.03 #; Lymphocytes # 1.2 10*3/uL (1.4-4.0); Lymphocytes % 19.1 % (21.2-54.2); Mean Corpuscular HGB Conc 31.2 GM/DL (32-36); Mean Corpuscular Volume 96.9 FL (87-102); Mean Platelet Volume 8.7 FL (9.6-12.0); Monocytes % 8.3 % (1.7-12.7); Neutrophils % 68.6 % (38.7-73.9); Platelet Count 337 T/CUMM (130-400); Red Blood Count 2.88 MC/CUMM (3.8-5.5); Red Cell Distribution Width 13.2 % (9.3-17.3); White Blood Count 6.4 T/CUMM (4-12)
[2018-12-17 05:10] LABS: Calcium 8.5 MG/DL (8.5-10.1); Osmolality,Calculated 288.8 MOS/KG (273-304)
[2018-12-17] MEDS: PIPERACILLIN/TAZOBACTAM 3,375 MG in SODIUM CHLORIDE 0.9% 100 ML IV SCH ×3 (05:42→21:41)
[2018-12-17] MEDS: LEVOTHYROXINE 175 MCG TABLET PO SCH (06:29)
[2018-12-17] MEDS: FINASTERIDE 5 MG TABLET PO SCH (08:52)
[2018-12-17] MEDS: metFORMIN 500 MG TABLET PO SCH ×2 (08:52→21:47)
[2018-12-17] MEDS: ASPIRIN EC 81 MG TABLET PO SCH (08:52)
[2018-12-17] MEDS: DOCUSATE/SENNA 50-8.6 MG TABLET PO SCH ×2 (08:52→21:46)
[2018-12-17] MEDS: INSULIN ASPART PROTAMINE/ASPART 70/30 100 UNIT/ML SUBCUT SCH ×2 (08:52→16:30)
[2018-12-17] MEDS: INSULIN REGULAR 100 UNIT/ML SUBCUT SCH ×4 (08:53→21:49)
[2018-12-17] MEDS: POLYETHYLENE GLYCOL POWDER 17 GM PACK PO SCH ×2 (08:53→21:47)
[2018-12-17] MEDS: ENOXAPARIN 30 MG/0.3 ML SYRINGE SUBCUT SCH (12:05)
[2018-12-17] MEDS: MORPHINE 4 MG/1 ML VIAL IV PRN ×2 (13:26→16:45)
[2018-12-17] MEDS: TAMSULOSIN 0.4 MG CAPSULE PO SCH (21:46)
[2018-12-17] MEDS: AMITRIPTYLINE 50 MG TABLET PO SCH (21:47)
[2018-12-17] MEDS: SIMVASTATIN 20 MG TABLET PO SCH (21:47)
[2018-12-18 04:53] LABS: Basophils % 0.5 % (0.0-0.8); Eosinophils # 0.4 10*3/uL (0.0-0.87); Eosinophils % 5.5 % (0.00-10.9); Hematocrit 29.2 VOL% (42.0-52.0); Immature Granulocytes % 0.5 %; Immature Granulocytes Absolute 0.03 #; Lymphocytes # 1.3 10*3/uL (1.4-4.0); Lymphocytes % 18.9 % (21.2-54.2); Mean Corpuscular HGB Conc 30.8 GM/DL (32-36); Mean Platelet Volume 8.6 FL (9.6-12.0); Monocytes % 9.2 % (1.7-12.7); Neutrophils % 65.4 % (38.7-73.9); Platelet Count 343 T/CUMM (130-400); Red Blood Count 2.98 MC/CUMM (3.8-5.5); Red Cell Distribution Width 13.5 % (9.3-17.3); White Blood Count 6.6 T/CUMM (4-12)
[2018-12-18 05:11] LABS: Calcium 8.9 MG/DL (8.5-10.1)
[2018-12-18] MEDS: PIPERACILLIN/TAZOBACTAM 3,375 MG in SODIUM CHLORIDE 0.9% 100 ML IV SCH (05:35)
[2018-12-18] MEDS: LEVOTHYROXINE 175 MCG TABLET PO SCH (06:34)
[2018-12-18] MEDS: INSULIN REGULAR 100 UNIT/ML SUBCUT SCH ×4 (07:19→21:20)
[2018-12-18] MEDS: INSULIN ASPART PROTAMINE/ASPART 70/30 100 UNIT/ML SUBCUT SCH ×2 (08:36→16:32)
[2018-12-18] MEDS: DOCUSATE/SENNA 50-8.6 MG TABLET PO SCH ×2 (08:37→21:21)
[2018-12-18] MEDS: POLYETHYLENE GLYCOL POWDER 17 GM PACK PO SCH ×2 (08:37→21:20)
[2018-12-18] MEDS: FINASTERIDE 5 MG TABLET PO SCH (08:47)
[2018-12-18] MEDS: metFORMIN 500 MG TABLET PO SCH ×2 (08:47→21:20)
[2018-12-18] MEDS: ASPIRIN EC 81 MG TABLET PO SCH (08:47)
[2018-12-18] MEDS: LEVOFLOXACIN 750 MG TABLET PO SCH (08:50)
[2018-12-18] MEDS: ENOXAPARIN 30 MG/0.3 ML SYRINGE SUBCUT SCH (13:16)
[2018-12-18] MEDS: MORPHINE 4 MG/1 ML VIAL IV PRN (13:17)
[2018-12-18] MEDS: TAMSULOSIN 0.4 MG CAPSULE PO SCH (21:17)
[2018-12-18] MEDS: SIMVASTATIN 20 MG TABLET PO SCH (21:18)
[2018-12-18] MEDS: AMITRIPTYLINE 50 MG TABLET PO SCH (21:18)
[2018-12-19 05:14] LABS: Hemoglobin 8.7 GM/DL (14.0-18.0); Red Blood Count 2.88 MC/CUMM (3.8-5.5); White Blood Count 7.4 T/CUMM (4-12)
[2018-12-19 05:15] LABS: Basophils % 0.4 % (0.0-0.8); Eosinophils # 0.4 10*3/uL (0.0-0.87); Eosinophils % 5.3 % (0.00-10.9); Immature Granulocytes % 0.3 %; Immature Granulocytes Absolute 0.02 #; Lymphocytes # 1.4 10*3/uL (1.4-4.0); Lymphocytes % 19.1 % (21.2-54.2); Mean Corpuscular HGB Conc 31.1 GM/DL (32-36); Mean Corpuscular Volume 97.2 FL (87-102); Mean Platelet Volume 8.7 FL (9.6-12.0); Monocytes % 8.5 % (1.7-12.7); Neutrophils % 66.4 % (38.7-73.9); Platelet Count 328 T/CUMM (130-400); Red Cell Distribution Width 13.4 % (9.3-17.3)
[2018-12-19 05:46] LABS: Calcium 8.5 MG/DL (8.5-10.1); Osmolality,Calculated 283.1 MOS/KG (273-304)
[2018-12-19] MEDS: LEVOTHYROXINE 175 MCG TABLET PO SCH (06:34)
[2018-12-19] MEDS: POLYETHYLENE GLYCOL POWDER 17 GM PACK PO SCH ×2 (08:51→20:35)
[2018-12-19] MEDS: LEVOFLOXACIN 750 MG TABLET PO SCH (08:52)
[2018-12-19] MEDS: metFORMIN 500 MG TABLET PO SCH ×2 (08:52→20:25)
[2018-12-19] MEDS: FINASTERIDE 5 MG TABLET PO SCH (08:52)
[2018-12-19] MEDS: ASPIRIN EC 81 MG TABLET PO SCH (08:52)
[2018-12-19] MEDS: DOCUSATE/SENNA 50-8.6 MG TABLET PO SCH ×2 (08:52→20:26)
[2018-12-19] MEDS: INSULIN REGULAR 100 UNIT/ML SUBCUT SCH ×4 (08:56→20:35)
[2018-12-19] MEDS: INSULIN ASPART PROTAMINE/ASPART 70/30 100 UNIT/ML SUBCUT SCH ×3 (08:56→16:42)
[2018-12-19] MEDS: MORPHINE 4 MG/1 ML VIAL IV PRN ×2 (10:40→20:30)
[2018-12-19] MEDS: ENOXAPARIN 30 MG/0.3 ML SYRINGE SUBCUT SCH (11:04)
[2018-12-19] MEDS: TAMSULOSIN 0.4 MG CAPSULE PO SCH (20:26)
[2018-12-19] MEDS: AMITRIPTYLINE 50 MG TABLET PO SCH (20:26)
[2018-12-19] MEDS: SIMVASTATIN 20 MG TABLET PO SCH (20:26)
[2018-12-20 05:04] LABS: Basophils % 0.5 % (0.0-0.8); Eosinophils # 0.4 10*3/uL (0.0-0.87); Eosinophils % 4.8 % (0.00-10.9); Hematocrit 29.9 VOL% (42.0-52.0); Hemoglobin 9.2 GM/DL (14.0-18.0); Immature Granulocytes % 0.5 %; Immature Granulocytes Absolute 0.04 #; Lymphocytes # 1.3 10*3/uL (1.4-4.0); Lymphocytes % 16.6 % (21.2-54.2); Mean Corpuscular HGB Conc 30.8 GM/DL (32-36); Mean Corpuscular Volume 98.7 FL (87-102); Mean Platelet Volume 8.7 FL (9.6-12.0); Monocytes % 8.9 % (1.7-12.7); Neutrophils % 68.7 % (38.7-73.9); Platelet Count 332 T/CUMM (130-400); Red Blood Count 3.03 MC/CUMM (3.8-5.5); Red Cell Distribution Width 13.5 % (9.3-17.3); White Blood Count 7.8 T/CUMM (4-12)
[2018-12-20 05:20] LABS: Calcium 8.9 MG/DL (8.5-10.1); Osmolality,Calculated 286.8 MOS/KG (273-304)
[2018-12-20] MEDS: LEVOTHYROXINE 175 MCG TABLET PO SCH (06:27)
[2018-12-20] MEDS: LEVOFLOXACIN 750 MG TABLET PO SCH (08:32)
[2018-12-20] MEDS: FINASTERIDE 5 MG TABLET PO SCH (08:32)
[2018-12-20] MEDS: metFORMIN 500 MG TABLET PO SCH ×2 (08:32→20:59)
[2018-12-20] MEDS: ASPIRIN EC 81 MG TABLET PO SCH (08:32)
[2018-12-20] MEDS: INSULIN REGULAR 100 UNIT/ML SUBCUT SCH ×4 (08:34→21:01)
[2018-12-20] MEDS: INSULIN ASPART PROTAMINE/ASPART 70/30 100 UNIT/ML SUBCUT SCH ×2 (08:35→17:05)
[2018-12-20] MEDS: POLYETHYLENE GLYCOL POWDER 17 GM PACK PO SCH ×2 (08:35→21:00)
[2018-12-20] MEDS: DOCUSATE/SENNA 50-8.6 MG TABLET PO SCH ×2 (08:36→20:59)
[2018-12-20] MEDS: ENOXAPARIN 40 MG/0.4 ML SYRINGE SUBCUT SCH (10:58)
[2018-12-20] MEDS: MORPHINE 4 MG/1 ML VIAL IV PRN (12:15)
[2018-12-20] MEDS: TAMSULOSIN 0.4 MG CAPSULE PO SCH (21:00)
[2018-12-20] MEDS: SIMVASTATIN 20 MG TABLET PO SCH (21:00)
[2018-12-20] MEDS: AMITRIPTYLINE 50 MG TABLET PO SCH (21:00)
[2018-12-21] MEDS: MORPHINE 4 MG/1 ML VIAL IV PRN (01:10)
[2018-12-21 04:53] LABS: Basophils % 0.3 % (0.0-0.8); Eosinophils # 0.3 10*3/uL (0.0-0.87); Eosinophils % 3.5 % (0.00-10.9); Hematocrit 29.5 VOL% (42.0-52.0); Hemoglobin 9.2 GM/DL (14.0-18.0); Immature Granulocytes % 0.6 %; Immature Granulocytes Absolute 0.05 #; Lymphocytes # 1.1 10*3/uL (1.4-4.0); Lymphocytes % 12.9 % (21.2-54.2); Mean Corpuscular HGB Conc 31.2 GM/DL (32-36); Mean Corpuscular Volume 98.7 FL (87-102); Monocytes % 7.5 % (1.7-12.7); Neutrophils % 75.2 % (38.7-73.9); Platelet Count 325 T/CUMM (130-400); Red Blood Count 2.99 MC/CUMM (3.8-5.5); Red Cell Distribution Width 13.6 % (9.3-17.3); White Blood Count 8.7 T/CUMM (4-12)
[2018-12-21 05:16] LABS: Calcium 9.2 MG/DL (8.5-10.1); Osmolality,Calculated 288.7 MOS/KG (273-304)
[2018-12-21] MEDS: LEVOTHYROXINE 175 MCG TABLET PO SCH (06:27)
[2018-12-21] MEDS: metFORMIN 500 MG TABLET PO SCH ×2 (08:52→20:39)
[2018-12-21] MEDS: FINASTERIDE 5 MG TABLET PO SCH (08:52)
[2018-12-21] MEDS: ASPIRIN EC 81 MG TABLET PO SCH (08:52)
[2018-12-21] MEDS: LEVOFLOXACIN 750 MG TABLET PO SCH (08:53)
[2018-12-21] MEDS: INSULIN REGULAR 100 UNIT/ML SUBCUT SCH ×4 (08:55→21:24)
[2018-12-21] MEDS: INSULIN ASPART PROTAMINE/ASPART 70/30 100 UNIT/ML SUBCUT SCH ×2 (08:56→18:35)
[2018-12-21] MEDS: ENOXAPARIN 40 MG/0.4 ML SYRINGE SUBCUT SCH (09:34)
[2018-12-21] MEDS: POLYETHYLENE GLYCOL POWDER 17 GM PACK PO SCH ×2 (09:34→20:40)
[2018-12-21] MEDS: DOCUSATE/SENNA 50-8.6 MG TABLET PO SCH ×2 (09:34→20:40)
[2018-12-21] MEDS: AMITRIPTYLINE 50 MG TABLET PO SCH (20:39)
[2018-12-21] MEDS: TAMSULOSIN 0.4 MG CAPSULE PO SCH (20:39)
[2018-12-21] MEDS: SIMVASTATIN 20 MG TABLET PO SCH (20:39)
[2018-12-22 04:43] LABS: Basophils % 0.3 % (0.0-0.8); Eosinophils # 0.4 10*3/uL (0.0-0.87); Eosinophils % 4.2 % (0.00-10.9); Hematocrit 30.8 VOL% (42.0-52.0); Hemoglobin 9.6 GM/DL (14.0-18.0); Immature Granulocytes % 0.5 %; Immature Granulocytes Absolute 0.04 #; Lymphocytes # 1.1 10*3/uL (1.4-4.0); Lymphocytes % 12.2 % (21.2-54.2); Mean Corpuscular HGB Conc 31.2 GM/DL (32-36); Mean Corpuscular Volume 97.5 FL (87-102); Mean Platelet Volume 9.1 FL (9.6-12.0); Monocytes % 8.4 % (1.7-12.7); Neutrophils % 74.4 % (38.7-73.9); Platelet Count 322 T/CUMM (130-400); Red Blood Count 3.16 MC/CUMM (3.8-5.5); Red Cell Distribution Width 13.5 % (9.3-17.3); White Blood Count 8.6 T/CUMM (4-12)
[2018-12-22] MEDS: MORPHINE 4 MG/1 ML VIAL IV PRN ×2 (04:46→20:21)
[2018-12-22] MEDS: LEVOTHYROXINE 175 MCG TABLET PO SCH (06:27)
[2018-12-22] MEDS: INSULIN ASPART PROTAMINE/ASPART 70/30 100 UNIT/ML SUBCUT SCH ×2 (08:09→16:32)
[2018-12-22] MEDS: INSULIN REGULAR 100 UNIT/ML SUBCUT SCH ×4 (08:15→21:32)
[2018-12-22] MEDS: POLYETHYLENE GLYCOL POWDER 17 GM PACK PO SCH ×2 (08:56→20:26)
[2018-12-22] MEDS: LEVOFLOXACIN 750 MG TABLET PO SCH (08:56)
[2018-12-22] MEDS: metFORMIN 500 MG TABLET PO SCH ×2 (08:56→20:21)
[2018-12-22] MEDS: ASPIRIN EC 81 MG TABLET PO SCH (08:56)
[2018-12-22] MEDS: FINASTERIDE 5 MG TABLET PO SCH (08:56)
[2018-12-22] MEDS: DOCUSATE/SENNA 50-8.6 MG TABLET PO SCH ×2 (08:56→20:21)
[2018-12-22] MEDS: ONDANSETRON 4 MG/2 ML VIAL IV PRN (10:16)
[2018-12-22] MEDS: ENOXAPARIN 40 MG/0.4 ML SYRINGE SUBCUT SCH (11:29)
[2018-12-22] MEDS: SIMVASTATIN 20 MG TABLET PO SCH (20:21)
[2018-12-22] MEDS: TAMSULOSIN 0.4 MG CAPSULE PO SCH (20:21)
[2018-12-22] MEDS: AMITRIPTYLINE 50 MG TABLET PO SCH (20:21)
[2018-12-23] MEDS: LEVOTHYROXINE 175 MCG TABLET PO SCH (06:12)
[2018-12-23] MEDS: MORPHINE 4 MG/1 ML VIAL IV PRN (06:14)
[2018-12-23 07:59] VITALS: BP 122/54
[2018-12-23] MEDS: INSULIN REGULAR 100 UNIT/ML SUBCUT SCH (08:27)
[2018-12-23] MEDS: INSULIN ASPART PROTAMINE/ASPART 70/30 100 UNIT/ML SUBCUT SCH (08:41)
[2018-12-23] MEDS: ENOXAPARIN 40 MG/0.4 ML SYRINGE SUBCUT SCH (09:56)
[2018-12-23] MEDS: FINASTERIDE 5 MG TABLET PO SCH (09:56)
[2018-12-23] MEDS: LEVOFLOXACIN 750 MG TABLET PO SCH (09:56)
[2018-12-23] MEDS: ASPIRIN EC 81 MG TABLET PO SCH (09:56)
[2018-12-23] MEDS: metFORMIN 500 MG TABLET PO SCH (09:56)
[2018-12-23] MEDS: DOCUSATE/SENNA 50-8.6 MG TABLET PO SCH (09:57)
[2018-12-23] MEDS: POLYETHYLENE GLYCOL POWDER 17 GM PACK PO SCH (09:57)
== END 2018-12-23 11:12 | disposition home health service (06) | DRG 857 ==
LOC: N.3E
PROVIDERS: ADMIT Orthopaedic Surgery; ATTEND Orthopaedic Surgery

== ENCOUNTER 2019-08-17 06:37 | Inpatient (IN) ==
[2019-08-11 12:36] LABS: Basophils % 0.5 % (0.0-0.8); Eosinophils # 0.3 10*3/uL (0.0-0.87); Eosinophils % 3.5 % (0.00-10.9); Hematocrit 37.7 VOL% (42.0-52.0); Hemoglobin 11.5 GM/DL (14.0-18.0); Immature Granulocytes % 0.3 %; Immature Granulocytes Absolute 0.02 #; Lymphocytes # 1.6 10*3/uL (1.4-4.0); Lymphocytes % 21.8 % (21.2-54.2); Mean Corpuscular HGB Conc 30.5 GM/DL (32-36); Mean Corpuscular Volume 90.2 FL (87-102); Mean Platelet Volume 8.6 FL (9.6-12.0); Monocytes % 10.4 % (1.7-12.7); Neutrophils % 63.5 % (38.7-73.9); Platelet Count 295 T/CUMM (130-400); Red Blood Count 4.18 MC/CUMM (3.8-5.5); Red Cell Distribution Width 17.2 % (9.3-17.3); White Blood Count 7.5 T/CUMM (4-12)
[2019-08-11 13:12] LABS: Osmolality,Calculated 269.2 MOS/KG (273-304)
[~2019-08-17 06:37] MED LIST: ceFAZolin 1,000 MG in SYRINGE 1 EACH IV ONE
[2019-08-17] MEDS ORDERED: ceFAZolin 1,000 MG VIAL ONE (07:22)
[2019-08-17] MEDS: LACTATED RINGERS 1,000 ML IV SCH ×3 (07:50→18:23)
[2019-08-17] MEDS ORDERED: fentaNYL 2 MCG/ROPIV 0.2% EPID 100 ML EPIDURAL ONE (09:08)
[2019-08-17] MEDS: fentaNYL 2 MCG/ROPIV 0.2% EPID 100 ML EPIDURAL SCH ×2 (10:01→23:11)
[2019-08-17] MEDS ORDERED: LACTATED RINGERS 1,000 ML IV ONE (10:11)
[2019-08-17] MEDS ORDERED: DEXMEDETOMIDINE 200 MCG/2 ML VIAL ONE (10:11)
[2019-08-17] MEDS ORDERED: BUPIVACAINE SPINAL 0.75% 2 ML AMP SPINAL ONE (10:11)
[2019-08-17] MEDS ORDERED: propofoL 200 MG/20 ML VIAL IV ONE (10:11)
[2019-08-17] MEDS ORDERED: PHENYLEPHRINE 1 MG/10 ML SYRINGE IV ONE (10:11)
[2019-08-17] MEDS ORDERED: KETOROLAC 60 MG/2 ML VIAL IM ONE (10:25)
[2019-08-17] MEDS ORDERED: diphenhydrAMINE CAP 25 MG CAPSULE PO PRN (10:25)
[2019-08-17] MEDS ORDERED: ONDANSETRON 4 MG/2 ML VIAL IV PRN (10:25)
[2019-08-17] MEDS ORDERED: diphenhydrAMINE 50 MG/1 ML VIAL IV PRN (10:25)
[2019-08-17] MEDS ORDERED: KETOROLAC 10 MG TABLET PO PRN (10:25)
[2019-08-17] MEDS ORDERED: ACETAMINOPHEN 325 MG TABLET PO PRN (10:38)
[2019-08-17] MEDS: KETOROLAC 30 MG/1 ML VIAL IM PRN ×2 (16:28→23:10)
[2019-08-18 06:03] LABS: Basophils % 0.4 % (0.0-0.8); Eosinophils # 0.1 10*3/uL (0.0-0.87); Eosinophils % 1.5 % (0.00-10.9); Hematocrit 29.6 VOL% (42.0-52.0); Hemoglobin 9.1 GM/DL (14.0-18.0); Immature Granulocytes % 0.3 %; Immature Granulocytes Absolute 0.02 #; Lymphocytes # 1.2 10*3/uL (1.4-4.0); Lymphocytes % 15.6 % (21.2-54.2); Mean Corpuscular HGB Conc 30.7 GM/DL (32-36); Mean Corpuscular Volume 89.4 FL (87-102); Mean Platelet Volume 9.4 FL (9.6-12.0); Neutrophils % 71.2 % (38.7-73.9); Platelet Count 249 T/CUMM (130-400); Red Blood Count 3.31 MC/CUMM (3.8-5.5); White Blood Count 7.8 T/CUMM (4-12)
[2019-08-18 06:19] LABS: Calcium 8.5 MG/DL (8.5-10.1); Osmolality,Calculated 285.7 MOS/KG (273-304)
[2019-08-18] MEDS: KETOROLAC 30 MG/1 ML VIAL IM PRN (11:26)
[2019-08-18] MEDS: PANTOPRAZOLE 40 MG TABLET PO SCH (11:30)
[2019-08-18] MEDS: LACTATED RINGERS 1,000 ML IV SCH (11:38)
[2019-08-18] MEDS ORDERED: GABAPENTIN 100 MG CAPSULE PO ONE (12:30)
[2019-08-18] MEDS: fentaNYL 2 MCG/ROPIV 0.2% EPID 100 ML EPIDURAL SCH (17:06)
[2019-08-18] MEDS: INSULIN NPH/REGULAR 70/30 100 UNIT/ML SUBCUT SCH (20:53)
[2019-08-18] MEDS: GABAPENTIN 100 MG CAPSULE PO SCH (20:54)
[2019-08-18] MEDS: AMITRIPTYLINE 50 MG TABLET PO SCH (20:55)
[2019-08-18] MEDS: SIMVASTATIN 20 MG TABLET PO SCH (20:55)
[2019-08-19] MEDS: fentaNYL 2 MCG/ROPIV 0.2% EPID 100 ML EPIDURAL SCH ×2 (05:38→12:50)
[2019-08-19] MEDS: LEVOTHYROXINE 175 MCG TABLET PO SCH (06:33)
[2019-08-19] MEDS: ASPIRIN EC 81 MG TABLET PO SCH (08:57)
[2019-08-19] MEDS: DOCUSATE SODIUM 100 MG CAPSULE PO SCH (08:57)
[2019-08-19] MEDS: INSULIN NPH/REGULAR 70/30 100 UNIT/ML SUBCUT SCH ×2 (08:58→21:34)
[2019-08-19] MEDS: PANTOPRAZOLE 40 MG TABLET PO SCH (08:59)
[2019-08-19] MEDS: GABAPENTIN 100 MG CAPSULE PO SCH ×3 (08:59→20:35)
[2019-08-19] MEDS: LACTATED RINGERS 1,000 ML IV SCH (10:30)
[2019-08-19] MEDS ORDERED: HYDROmorphone 2 MG/1 ML VIAL IV PRN ×2 (14:13)
[2019-08-19] MEDS ORDERED: KETOROLAC 30 MG/1 ML VIAL IV ONE (14:13)
[2019-08-19] MEDS ORDERED: KETOROLAC 15 MG/1 ML VIAL IV PRN (14:13)
[2019-08-19] MEDS: AMITRIPTYLINE 50 MG TABLET PO SCH (20:35)
[2019-08-19] MEDS: SIMVASTATIN 20 MG TABLET PO SCH (20:35)
[2019-08-20] MEDS: LEVOTHYROXINE 175 MCG TABLET PO SCH (06:28)
[2019-08-20] MEDS: ASPIRIN EC 81 MG TABLET PO SCH (09:35)
[2019-08-20] MEDS: DOCUSATE SODIUM 100 MG CAPSULE PO SCH (09:35)
[2019-08-20] MEDS: INSULIN NPH/REGULAR 70/30 100 UNIT/ML SUBCUT SCH (09:35)
[2019-08-20] MEDS: GABAPENTIN 100 MG CAPSULE PO SCH ×2 (09:36→15:57)
[2019-08-20] MEDS: PANTOPRAZOLE 40 MG TABLET PO SCH (09:36)
[2019-08-20] MEDS: LACTATED RINGERS 1,000 ML IV SCH (10:30)
[2019-08-20 13:59] VITALS: BP 98/50
== END 2019-08-20 16:25 | disposition home health service (06) | DRG 617 ==
LOC: N.SDSINP 06:37 → SUPCPDRO 06:37 → N.3E 13:21
PROVIDERS: ADMIT Surgery; ATTEND Surgery

== ENCOUNTER 2020-08-26 11:38 | Inpatient (IN) ==
[2020-08-26 12:49] LABS: Basophils % 0.4 % (0.0-0.8); Eosinophils # 0.2 10*3/uL (0.0-0.87); Eosinophils % 1.3 % (0.00-10.9); Hematocrit 37.1 VOL% (42.0-52.0); Hemoglobin 11.8 GM/DL (14.0-18.0); Immature Granulocytes % 0.7 %; Immature Granulocytes Absolute 0.08 #; Lymphocytes # 0.9 10*3/uL (1.4-4.0); Lymphocytes % 8.1 % (21.2-54.2); Mean Corpuscular HGB Conc 31.8 GM/DL (32-36); Mean Corpuscular Volume 97.4 FL (87-102); Mean Platelet Volume 9.2 FL (9.6-12.0); Monocytes % 5.6 % (1.7-12.7); Neutrophils % 83.9 % (38.7-73.9); Platelet Count 396 T/CUMM (130-400); Red Blood Count 3.81 MC/CUMM (3.8-5.5); Red Cell Distribution Width 17.3 % (9.3-17.3); White Blood Count 11.3 T/CUMM (4-12)
[2020-08-26 12:59] LABS: INR 1.1
[2020-08-26 13:10] LABS: Albumin 2.7 G/DL (3.4-5.0); Calcium 9.3 MG/DL (8.5-10.1); Osmolality,Calculated 265.5 MOS/KG (273-304); Potassium 4.2 MMOL/L (3.5-5.1); Total Protein 7.9 G/DL (6.4-8.2)
[2020-08-26 13:19] LABS: Bilirubin,Direct 11.188 MG/DL (0.0-0.20); Bilirubin,Total 13.6 MG/DL (0.2-1.0)
[2020-08-26] MEDS ORDERED: PIPERACILLIN/TAZOBACTAM 3,375 MG in SODIUM CHLORIDE 0.9% 100 ML IV STA ×2 (14:05→14:10)
[2020-08-26] MEDS ORDERED: SODIUM CHLORIDE 0.9% 1,000 ML IV STA (14:05)
[2020-08-26 14:11] LABS: Hepatitis B Core IgM Quant 0.11 Index; Hepatitis B Surface Ag Quant < 0.10 Index; Hepatitis B Surface Ag Result Non-Reactive (NonReactive); Hepatitis C Virus Ab Quant 0.11 Index; Hepatitis C Virus Ab Result Non-Reactive (NonReactive)
[2020-08-26 14:32] LABS: Blood, Urine Negative (Negative); Glucose,Urine (UA) Negative (Negative); Ketones,Urine Negative (Negative); Mucus,Urine Many /LPF (Occasional); Nitrite,Urine Negative (Negative); Protein,Urine 30 MG/DL; RBC,Urine 2 /HPF (0-4); Squamous Epithelial Cell,Urine Occasional /HPF (0-10); Urine Appearance CLEAR (Clear); Urine Color Amber (Yellow); Urine Specific Gravity 1.027 (1.001-1.035)
[2020-08-26 14:33] LABS: Bilirubin,Urine Moderate mg/dL (Negative)
[2020-08-26] MEDS ORDERED: ONDANSETRON 4 MG/2 ML VIAL IV PRN (14:36)
[2020-08-26] MEDS ORDERED: GLUCAGON 1 MG VIAL IM PRN (14:36)
[2020-08-26] MEDS ORDERED: DEXTROSE 50% 25 GM/50 ML VIAL IV PRN (14:36)
[2020-08-26] MEDS: INSULIN LISPRO 100 UNIT/ML SUBCUT SCH ×2 (16:51→22:00)
[2020-08-26] MEDS: SODIUM CHLORIDE 0.9% 1,000 ML IV SCH (16:53)
[2020-08-26] MEDS: ENOXAPARIN 40 MG/0.4 ML SYRINGE SUBCUT SCH (16:53)
[2020-08-26] MEDS: PIPERACILLIN/TAZOBACTAM 3,375 MG in SODIUM CHLORIDE 0.9% 100 ML IV SCH (23:06)
[2020-08-27] MEDS: SODIUM CHLORIDE 0.9% 1,000 ML IV SCH ×4 (04:00→23:03)
[2020-08-27 05:47] LABS: Basophils # 0.1 10*3/uL (0.0-0.2); Basophils % 0.6 % (0.0-0.8); Eosinophils # 0.2 10*3/uL (0.0-0.87); Hematocrit 31.7 VOL% (42.0-52.0); Hemoglobin 9.9 GM/DL (14.0-18.0); Immature Granulocytes % 0.6 %; Immature Granulocytes Absolute 0.05 #; Lymphocytes # 1.2 10*3/uL (1.4-4.0); Lymphocytes % 14.3 % (21.2-54.2); Mean Corpuscular HGB Conc 31.2 GM/DL (32-36); Mean Corpuscular Volume 98.1 FL (87-102); Mean Platelet Volume 9.5 FL (9.6-12.0); Monocytes % 7.5 % (1.7-12.7); Platelet Count 345 T/CUMM (130-400); Red Blood Count 3.23 MC/CUMM (3.8-5.5); Red Cell Distribution Width 17.3 % (9.3-17.3); White Blood Count 8.5 T/CUMM (4-12)
[2020-08-27 06:04] LABS: Albumin 2.2 G/DL (3.4-5.0); Bilirubin,Total 10.2 MG/DL (0.2-1.0); Calcium 8.2 MG/DL (8.5-10.1); Osmolality,Calculated 266.4 MOS/KG (273-304); Potassium 3.4 MMOL/L (3.5-5.1); Total Protein 6.4 G/DL (6.4-8.2)
[2020-08-27] MEDS: LEVOTHYROXINE 175 MCG TABLET PO SCH (06:36)
[2020-08-27] MEDS: PIPERACILLIN/TAZOBACTAM 3,375 MG in SODIUM CHLORIDE 0.9% 100 ML IV SCH ×3 (06:38→22:55)
[2020-08-27] MEDS ORDERED: POTASSIUM CHLORIDE RIDER 10 MEQ/100 ML PREMIX IV PRN (07:54)
[2020-08-27] MEDS ORDERED: POTASSIUM CHLORIDE 20 MEQ TABLET PO ONE (08:33)
[2020-08-27] MEDS: INSULIN LISPRO 100 UNIT/ML SUBCUT SCH ×4 (08:38→23:02)
[2020-08-27] MEDS: PANTOPRAZOLE 40 MG TABLET PO SCH (09:03)
[2020-08-27] MEDS: ENOXAPARIN 40 MG/0.4 ML SYRINGE SUBCUT SCH (14:28)
[2020-08-28 04:45] LABS: Basophils % 0.6 % (0.0-0.8); Eosinophils # 0.2 10*3/uL (0.0-0.87); Eosinophils % 2.7 % (0.00-10.9); Immature Granulocytes % 0.7 %; Immature Granulocytes Absolute 0.05 #; Lymphocytes # 1.4 10*3/uL (1.4-4.0); Lymphocytes % 19.8 % (21.2-54.2); Mean Corpuscular HGB Conc 31.3 GM/DL (32-36); Mean Corpuscular Volume 98.2 FL (87-102); Mean Platelet Volume 9.7 FL (9.6-12.0); Monocytes % 8.2 % (1.7-12.7); Platelet Count 340 T/CUMM (130-400); Red Blood Count 3.26 MC/CUMM (3.8-5.5); Red Cell Distribution Width 17.5 % (9.3-17.3); White Blood Count 6.9 T/CUMM (4-12)
[2020-08-28 04:54] LABS: INR 1.1; PT Patient Result 11.9 SECS (10.5-12.0); Partial Thromboplastin Time 28.9 SECS (23.9-33.8)
[2020-08-28 04:59] LABS: Albumin 2.1 G/DL (3.4-5.0); Bilirubin,Total 9.6 MG/DL (0.2-1.0); Calcium 8.5 MG/DL (8.5-10.1); Osmolality,Calculated 270.2 MOS/KG (273-304); Potassium 3.9 MMOL/L (3.5-5.1); Total Protein 6.2 G/DL (6.4-8.2)
[2020-08-28] MEDS: LEVOTHYROXINE 175 MCG TABLET PO SCH (05:56)
[2020-08-28] MEDS: PIPERACILLIN/TAZOBACTAM 3,375 MG in SODIUM CHLORIDE 0.9% 100 ML IV SCH ×3 (05:57→22:09)
[2020-08-28] MEDS: PANTOPRAZOLE 40 MG TABLET PO SCH (08:09)
[2020-08-28] MEDS: SODIUM CHLORIDE 0.9% 1,000 ML IV SCH ×3 (08:10→23:00)
[2020-08-28] MEDS: INSULIN LISPRO 100 UNIT/ML SUBCUT SCH ×4 (08:50→22:12)
[2020-08-28] MEDS: ENOXAPARIN 40 MG/0.4 ML SYRINGE SUBCUT SCH (14:43)
[2020-08-28] MEDS ORDERED: AMITRIPTYLINE 50 MG TABLET PO SCH (21:00)
[2020-08-29] MEDS: SODIUM CHLORIDE 0.9% 1,000 ML IV SCH ×2 (03:30→13:06)
[2020-08-29 05:58] LABS: Basophils # 0.1 10*3/uL (0.0-0.2); Basophils % 0.8 % (0.0-0.8); Eosinophils # 0.2 10*3/uL (0.0-0.87); Eosinophils % 2.1 % (0.00-10.9); Hematocrit 33.3 VOL% (42.0-52.0); Hemoglobin 10.3 GM/DL (14.0-18.0); Immature Granulocytes % 0.7 %; Immature Granulocytes Absolute 0.05 #; Lymphocytes # 1.1 10*3/uL (1.4-4.0); Lymphocytes % 15.7 % (21.2-54.2); Mean Corpuscular HGB Conc 30.9 GM/DL (32-36); Mean Platelet Volume 9.4 FL (9.6-12.0); Monocytes % 9.2 % (1.7-12.7); Neutrophils % 71.5 % (38.7-73.9); Platelet Count 348 T/CUMM (130-400); Red Blood Count 3.33 MC/CUMM (3.8-5.5); Red Cell Distribution Width 17.4 % (9.3-17.3); White Blood Count 7.2 T/CUMM (4-12)
[2020-08-29 06:22] LABS: Albumin 2.1 G/DL (3.4-5.0); Bilirubin,Total 9.6 MG/DL (0.2-1.0); Calcium 8.3 MG/DL (8.5-10.1); Osmolality,Calculated 273.2 MOS/KG (273-304); Total Protein 6.3 G/DL (6.4-8.2)
[2020-08-29] MEDS: PIPERACILLIN/TAZOBACTAM 3,375 MG in SODIUM CHLORIDE 0.9% 100 ML IV SCH ×3 (06:26→21:56)
[2020-08-29] MEDS: LEVOTHYROXINE 200 MCG TABLET PO SCH ×2 (07:11→10:11)
[2020-08-29] MEDS ORDERED: ASPIRIN EC 81 MG TABLET PO SCH (09:00)
[2020-08-29] MEDS: INSULIN LISPRO 100 UNIT/ML SUBCUT SCH ×4 (10:09→21:56)
[2020-08-29] MEDS: DOCUSATE SODIUM 100 MG CAPSULE PO SCH (10:10)
[2020-08-29] MEDS: PANTOPRAZOLE 40 MG TABLET PO SCH (10:10)
[2020-08-29] MEDS: ZALEPLON 5 MG CAPSULE PO PRN (21:56)
[2020-08-29] MEDS: ENOXAPARIN 40 MG/0.4 ML SYRINGE SUBCUT SCH (21:56)
[2020-08-30] MEDS: SODIUM CHLORIDE 0.9% 1,000 ML IV SCH ×4 (01:32→16:10)
[2020-08-30] MEDS: PIPERACILLIN/TAZOBACTAM 3,375 MG in SODIUM CHLORIDE 0.9% 100 ML IV SCH ×3 (05:47→21:33)
[2020-08-30] MEDS: LEVOTHYROXINE 200 MCG TABLET PO SCH (05:47)
[2020-08-30 08:39] LABS: Basophils # 0.1 10*3/uL (0.0-0.2); Basophils % 0.9 % (0.0-0.8); Eosinophils # 0.2 10*3/uL (0.0-0.87); Eosinophils % 2.3 % (0.00-10.9); Hematocrit 33.2 VOL% (42.0-52.0); Hemoglobin 10.5 GM/DL (14.0-18.0); Immature Granulocytes % 0.9 %; Immature Granulocytes Absolute 0.06 #; Lymphocytes # 1.1 10*3/uL (1.4-4.0); Lymphocytes % 17.5 % (21.2-54.2); Mean Corpuscular HGB Conc 31.6 GM/DL (32-36); Mean Corpuscular Volume 99.1 FL (87-102); Mean Platelet Volume 9.2 FL (9.6-12.0); Monocytes % 8.7 % (1.7-12.7); Neutrophils % 69.7 % (38.7-73.9); Platelet Count 361 T/CUMM (130-400); Red Blood Count 3.35 MC/CUMM (3.8-5.5); Red Cell Distribution Width 18.2 % (9.3-17.3); White Blood Count 6.5 T/CUMM (4-12)
[2020-08-30 09:00] LABS: Albumin 2.4 G/DL (3.4-5.0); Bilirubin,Total 10.2 MG/DL (0.2-1.0); Calcium 8.9 MG/DL (8.5-10.1); Osmolality,Calculated 270.4 MOS/KG (273-304); Total Protein 6.7 G/DL (6.4-8.2)
[2020-08-30] MEDS: INSULIN LISPRO 100 UNIT/ML SUBCUT SCH ×4 (09:00→21:33)
[2020-08-30] MEDS: PANTOPRAZOLE 40 MG TABLET PO SCH (09:00)
[2020-08-30] MEDS: DOCUSATE SODIUM 100 MG CAPSULE PO SCH (09:00)
[2020-08-30 09:04] LABS: Band Neutrophils 1 % (0-10); Eosinophils 1 % (0-10); Lymphocytes 15 % (20-55); Platelet Estimate Adequate; Segmented Neutrophils 79 % (50-85); Total Cells Counted 100
[2020-08-30 09:05] LABS: Hypochromasia 1+; Microcytosis 1+
[2020-08-30] MEDS: ZALEPLON 5 MG CAPSULE PO PRN (21:33)
[2020-08-31 04:50] LABS: Basophils # 0.1 10*3/uL (0.0-0.2); Basophils % 0.6 % (0.0-0.8); Eosinophils # 0.1 10*3/uL (0.0-0.87); Eosinophils % 0.9 % (0.00-10.9); Hematocrit 31.4 VOL% (42.0-52.0); Hemoglobin 10.3 GM/DL (14.0-18.0); Immature Granulocytes % 0.5 %; Immature Granulocytes Absolute 0.04 #; Lymphocytes # 0.9 10*3/uL (1.4-4.0); Lymphocytes % 10.8 % (21.2-54.2); Mean Corpuscular HGB Conc 32.8 GM/DL (32-36); Mean Corpuscular Volume 96.3 FL (87-102); Mean Platelet Volume 9.6 FL (9.6-12.0); Monocytes % 7.5 % (1.7-12.7); Neutrophils % 79.7 % (38.7-73.9); Platelet Count 349 T/CUMM (130-400); Red Blood Count 3.26 MC/CUMM (3.8-5.5); Red Cell Distribution Width 18.3 % (9.3-17.3); White Blood Count 8.6 T/CUMM (4-12)
[2020-08-31 05:16] LABS: Albumin 2.2 G/DL (3.4-5.0); Calcium 8.4 MG/DL (8.5-10.1); Osmolality,Calculated 269.5 MOS/KG (273-304); Potassium 3.8 MMOL/L (3.5-5.1); Total Protein 6.4 G/DL (6.4-8.2)
[2020-08-31 05:36] LABS: Bilirubin,Total 12.1 MG/DL (0.2-1.0)
[2020-08-31] MEDS: PIPERACILLIN/TAZOBACTAM 3,375 MG in SODIUM CHLORIDE 0.9% 100 ML IV SCH ×3 (05:55→21:08)
[2020-08-31] MEDS: LEVOTHYROXINE 200 MCG TABLET PO SCH (06:01)
[2020-08-31] MEDS ORDERED: INDOMETHACIN SUPP 50 MG SUPP RECTAL ONE (08:15)
[2020-08-31] MEDS: INSULIN LISPRO 100 UNIT/ML SUBCUT SCH ×4 (08:33→20:35)
[2020-08-31 09:02] LABS: INR 1.1; PT Patient Result 12.5 SECS (10.5-12.0)
[2020-08-31] MEDS: DOCUSATE SODIUM 100 MG CAPSULE PO SCH (11:32)
[2020-08-31] MEDS: PANTOPRAZOLE 40 MG TABLET PO SCH (11:33)
[2020-08-31] MEDS: LACTATED RINGERS 1,000 ML IV SCH (12:34)
[2020-08-31] MEDS ORDERED: MIDAZOLAM 2 MG/2 ML VIAL ONE (13:27)
[2020-08-31] MEDS ORDERED: propofoL 200 MG/20 ML VIAL IV ONE (13:27)
[2020-08-31] MEDS ORDERED: LIDOCAINE 2% 5 ML VIAL ONE (13:27)
[2020-08-31] MEDS ORDERED: fentaNYL 100 MCG/2 ML VIAL ONE (13:27)
[2020-08-31] MEDS ORDERED: SUCCINYLCHOLINE 200 MG/10 ML VIAL ONE (13:27)
[2020-08-31] MEDS ORDERED: ROCURONIUM 50 MG/5 ML VIAL IV ONE (13:31)
[2020-08-31] MEDS ORDERED: PHENYLEPHRINE 1 MG/10 ML SYRINGE IV ONE (14:02)
[2020-08-31] MEDS ORDERED: SUGAMMADEX 200 MG/2 ML VIAL IV ONE (14:05)
[2020-08-31] MEDS ORDERED: SEVOFLURANE 1 UNIT/15 MINUTE INH ONE (14:19)
[2020-08-31] MEDS: ENOXAPARIN 40 MG/0.4 ML SYRINGE SUBCUT SCH (20:34)
[2020-08-31] MEDS: SODIUM CHLORIDE 0.9% 1,000 ML IV SCH (21:06)
[2020-09-01 03:54] LABS: Basophils # 0.1 10*3/uL (0.0-0.2); Basophils % 0.7 % (0.0-0.8); Eosinophils # 0.1 10*3/uL (0.0-0.87); Eosinophils % 1.4 % (0.00-10.9); Hemoglobin 10.1 GM/DL (14.0-18.0); Immature Granulocytes % 0.4 %; Immature Granulocytes Absolute 0.03 #; Lymphocytes # 1.1 10*3/uL (1.4-4.0); Lymphocytes % 15.5 % (21.2-54.2); Mean Corpuscular HGB Conc 32.6 GM/DL (32-36); Mean Corpuscular Volume 98.7 FL (87-102); Mean Platelet Volume 9.5 FL (9.6-12.0); Monocytes % 12.3 % (1.7-12.7); Neutrophils % 69.7 % (38.7-73.9); Platelet Count 301 T/CUMM (130-400); Red Blood Count 3.14 MC/CUMM (3.8-5.5); Red Cell Distribution Width 19.3 % (9.3-17.3); White Blood Count 7.3 T/CUMM (4-12)
[2020-09-01 04:15] LABS: Bilirubin,Total 11.8 MG/DL (0.2-1.0); Calcium 8.2 MG/DL (8.5-10.1); Potassium 3.8 MMOL/L (3.5-5.1); Total Protein 6.1 G/DL (6.4-8.2)
[2020-09-01 04:30] LABS: Hypochromasia 1+; Microcytosis 1+
[2020-09-01 04:31] LABS: Polychromasia Slight; Target Cells Slight
[2020-09-01] MEDS: LEVOTHYROXINE 200 MCG TABLET PO SCH (05:53)
[2020-09-01] MEDS: SODIUM CHLORIDE 0.9% 1,000 ML IV SCH ×5 (05:54→21:54)
[2020-09-01] MEDS: PIPERACILLIN/TAZOBACTAM 3,375 MG in SODIUM CHLORIDE 0.9% 100 ML IV SCH ×3 (05:55→21:40)
[2020-09-01] MEDS: LACTATED RINGERS 1,000 ML IV SCH (07:57)
[2020-09-01] MEDS: DOCUSATE SODIUM 100 MG CAPSULE PO SCH (08:26)
[2020-09-01] MEDS: PANTOPRAZOLE 40 MG TABLET PO SCH (08:26)
[2020-09-01] MEDS: INSULIN LISPRO 100 UNIT/ML SUBCUT SCH ×4 (08:26→21:41)
[2020-09-01] MEDS ORDERED: HydrOXYzine PAMOATE 25 MG CAPSULE PO ONE (12:29)
[2020-09-01] MEDS ORDERED: HydrOXYzine PAMOATE 25 MG CAPSULE PO PRN (15:08)
[2020-09-01] MEDS: ZALEPLON 5 MG CAPSULE PO PRN (21:40)
[2020-09-01] MEDS: ENOXAPARIN 40 MG/0.4 ML SYRINGE SUBCUT SCH (21:40)
[2020-09-02] MEDS ORDERED: traZODone 50 MG TABLET PO PRN (00:13)
[2020-09-02 05:20] LABS: Basophils # 0.1 10*3/uL (0.0-0.2); Basophils % 0.7 % (0.0-0.8); Eosinophils # 0.1 10*3/uL (0.0-0.87); Eosinophils % 1.5 % (0.00-10.9); Hematocrit 30.4 VOL% (42.0-52.0); Hemoglobin 9.7 GM/DL (14.0-18.0); Immature Granulocytes % 0.5 %; Immature Granulocytes Absolute 0.04 #; Lymphocytes # 1.2 10*3/uL (1.4-4.0); Lymphocytes % 14.5 % (21.2-54.2); Mean Corpuscular HGB Conc 31.9 GM/DL (32-36); Mean Platelet Volume 9.8 FL (9.6-12.0); Monocytes % 8.7 % (1.7-12.7); Neutrophils % 74.1 % (38.7-73.9); Platelet Count 320 T/CUMM (130-400); Red Blood Count 3.04 MC/CUMM (3.8-5.5); Red Cell Distribution Width 20.2 % (9.3-17.3); White Blood Count 8.2 T/CUMM (4-12)
[2020-09-02] MEDS: PIPERACILLIN/TAZOBACTAM 3,375 MG in SODIUM CHLORIDE 0.9% 100 ML IV SCH (05:34)
[2020-09-02] MEDS: LEVOTHYROXINE 200 MCG TABLET PO SCH (05:34)
[2020-09-02 06:00] LABS: Calcium 8.1 MG/DL (8.5-10.1); Osmolality,Calculated 272.2 MOS/KG (273-304); Potassium 3.7 MMOL/L (3.5-5.1)
[2020-09-02 06:11] LABS: Hypochromasia 1+; Microcytosis 1+; Platelet Estimate Normal; Polychromasia Slight; Target Cells Few
[2020-09-02 06:19] LABS: Bilirubin,Total 12.6 MG/DL (0.2-1.0)
[2020-09-02] MEDS: DOCUSATE SODIUM 100 MG CAPSULE PO SCH (08:57)
[2020-09-02] MEDS: PANTOPRAZOLE 40 MG TABLET PO SCH (08:57)
[2020-09-02] MEDS: INSULIN LISPRO 100 UNIT/ML SUBCUT SCH ×3 (08:58→16:57)
[2020-09-02 14:57] VITALS: BP 119/60
== END 2020-09-02 18:40 | disposition hospice, home (50) | DRG 445 ==
LOC: N.ED 11:38 → N.EDINP 14:36 → SUATTDRO 14:36 → N.EDINP 16:05 → N.5E 16:18
PROVIDERS: ADMIT Family Medicine; ATTEND Internal Medicine

== ENCOUNTER 2020-11-19 11:49 | Inpatient (IN) ==
[2020-11-19 15:34] LABS: Basophils % 0.3 % (0.0-0.8); Eosinophils # 0.1 10*3/uL (0.0-0.87); Eosinophils % 0.7 % (0.00-10.9); Hematocrit 41.4 VOL% (42.0-52.0); Hemoglobin 13.2 GM/DL (14.0-18.0); Immature Granulocytes % 0.5 %; Immature Granulocytes Absolute 0.07 #; Lymphocytes # 1.6 10*3/uL (1.4-4.0); Lymphocytes % 12.3 % (21.2-54.2); Mean Corpuscular HGB Conc 31.9 GM/DL (32-36); Mean Corpuscular Volume 95.8 FL (87-102); Mean Platelet Volume 8.9 FL (9.6-12.0); Monocytes % 9.2 % (1.7-12.7); Platelet Count 336 T/CUMM (130-400); Red Blood Count 4.32 MC/CUMM (3.8-5.5); Red Cell Distribution Width 13.9 % (9.3-17.3); White Blood Count 12.9 T/CUMM (4-12)
[2020-11-19] MEDS ORDERED: SODIUM CHLORIDE 0.9% 1,000 ML IV STA ×2 (15:39→16:59)
[2020-11-19] MEDS ORDERED: ONDANSETRON 4 MG/2 ML VIAL IV STA (15:39)
[2020-11-19 15:44] LABS: Albumin 3.2 G/DL (3.4-5.0); Bilirubin,Total 0.9 MG/DL (0.20-1.00); Calcium 9.4 MG/DL (8.5-10.1); Osmolality,Calculated 280.1 MOS/KG (273-304); Potassium 3.3 MMOL/L (3.5-5.1); Total Protein 8.2 G/DL (6.4-8.2)
[2020-11-19] MEDS ORDERED: SODIUM CHLORIDE 0.9% 1,000 ML IV SCH (18:30)
[2020-11-19] MEDS ORDERED: ACETAMINOPHEN 325 MG TABLET PO PRN (18:47)
[2020-11-19] MEDS ORDERED: DEXTROSE 50% 25 GM/50 ML VIAL IV PRN (20:15)
[2020-11-19] MEDS ORDERED: GLUCAGON 1 MG VIAL IM PRN (20:15)
[2020-11-19] MEDS: POTASSIUM CHLORIDE INJ 10 MEQ in SODIUM CHLORIDE 0.9% 1,000 ML IV SCH (21:41)
[2020-11-19] MEDS: PIPERACILLIN/TAZOBACTAM 3,375 MG in SODIUM CHLORIDE 0.9% 100 ML IV SCH (21:43)
[2020-11-19] MEDS: INSULIN REGULAR 100 UNIT/ML SUBCUT SCH (23:48)
[2020-11-20] MEDS ORDERED: PHENOL 1.4% THROAT SPRAY 177 ML BOTTLE PO PRN (01:07)
[2020-11-20 04:15] LABS: Bilirubin,Urine Negative (Negative); Blood, Urine Negative (Negative); Glucose,Urine (UA) 50 mg/dL (Negative); Ketones,Urine 80 mg/dL (Negative); Mucus,Urine Occasional /LPF (Occasional); Nitrite,Urine Negative (Negative); Protein,Urine 30 MG/DL; RBC,Urine 2 /HPF (0-4); Squamous Epithelial Cell,Urine Occasional /HPF (0-10); Urine Appearance CLEAR (Clear); Urine Color Yellow (Yellow)
[2020-11-20 04:16] LABS: Urine Specific Gravity > 1.035 (1.001-1.035)
[2020-11-20 06:00] LABS: Basophils # 0.1 10*3/uL (0.0-0.2); Basophils % 0.7 % (0.0-0.8); Eosinophils # 0.2 10*3/uL (0.0-0.87); Eosinophils % 1.8 % (0.00-10.9); Hematocrit 37.1 VOL% (42.0-52.0); Immature Granulocytes % 0.5 %; Immature Granulocytes Absolute 0.05 #; Lymphocytes # 1.7 10*3/uL (1.4-4.0); Lymphocytes % 15.3 % (21.2-54.2); Mean Corpuscular HGB Conc 32.3 GM/DL (32-36); Mean Corpuscular Volume 96.1 FL (87-102); Mean Platelet Volume 8.8 FL (9.6-12.0); Monocytes % 8.6 % (1.7-12.7); Neutrophils % 73.1 % (38.7-73.9); Platelet Count 286 T/CUMM (130-400); Red Blood Count 3.86 MC/CUMM (3.8-5.5); Red Cell Distribution Width 14.1 % (9.3-17.3); White Blood Count 11.1 T/CUMM (4-12)
[2020-11-20] MEDS: PIPERACILLIN/TAZOBACTAM 3,375 MG in SODIUM CHLORIDE 0.9% 100 ML IV SCH ×3 (06:13→22:39)
[2020-11-20 06:35] LABS: Calcium 8.9 MG/DL (8.5-10.1); Osmolality,Calculated 282.3 MOS/KG (273-304)
[2020-11-20 06:38] LABS: Albumin 2.7 G/DL (3.4-5.0); Bilirubin,Total 1.6 MG/DL (0.20-1.00); Calcium 8.9 MG/DL (8.5-10.1); Osmolality,Calculated 278.5 MOS/KG (273-304); Potassium 2.4 MMOL/L (3.5-5.1); Total Protein 6.7 G/DL (6.4-8.2)
[2020-11-20 06:38] LABS: Risk Ratio 3.61; VLDL Cholesterol 31.8 MG/DL
[2020-11-20 06:40] LABS: Potassium 2.4 MMOL/L (3.5-5.1)
[2020-11-20] MEDS: POTASSIUM CHLORIDE RIDER 10 MEQ/100 ML PREMIX IV PRN ×10 (07:30→22:37)
[2020-11-20] MEDS: INSULIN REGULAR 100 UNIT/ML SUBCUT SCH ×4 (08:51→23:17)
[2020-11-20] MEDS ORDERED: PANTOPRAZOLE 40 MG TABLET PO SCH (09:00)
[2020-11-20] MEDS: PANTOPRAZOLE 40 MG VIAL IV SCH (09:51)
[2020-11-21] MEDS: PIPERACILLIN/TAZOBACTAM 3,375 MG in SODIUM CHLORIDE 0.9% 100 ML IV SCH ×3 (05:46→22:19)
[2020-11-21 05:47] LABS: Basophils # 0.1 10*3/uL (0.0-0.2); Basophils % 0.9 % (0.0-0.8); Eosinophils # 0.3 10*3/uL (0.0-0.87); Eosinophils % 3.1 % (0.00-10.9); Hematocrit 34.3 VOL% (42.0-52.0); Hemoglobin 10.7 GM/DL (14.0-18.0); Immature Granulocytes % 0.5 %; Immature Granulocytes Absolute 0.04 #; Lymphocytes # 1.3 10*3/uL (1.4-4.0); Lymphocytes % 16.7 % (21.2-54.2); Mean Corpuscular HGB Conc 31.2 GM/DL (32-36); Mean Corpuscular Volume 99.1 FL (87-102); Mean Platelet Volume 9.1 FL (9.6-12.0); Monocytes % 7.6 % (1.7-12.7); Neutrophils % 71.2 % (38.7-73.9); Platelet Count 264 T/CUMM (130-400); Red Blood Count 3.46 MC/CUMM (3.8-5.5); Red Cell Distribution Width 14.3 % (9.3-17.3)
[2020-11-21] MEDS: LEVOTHYROXINE 100 MCG VIAL IV SCH (05:54)
[2020-11-21 07:38] LABS: Calcium 8.3 MG/DL (8.5-10.1); Osmolality,Calculated 287.8 MOS/KG (273-304); Potassium 3.6 MMOL/L (3.5-5.1)
[2020-11-21] MEDS: PANTOPRAZOLE 40 MG VIAL IV SCH (09:05)
[2020-11-21] MEDS: INSULIN REGULAR 100 UNIT/ML SUBCUT SCH ×3 (12:52→22:18)
[2020-11-21] MEDS: LACTATED RINGERS 1,000 ML IV SCH ×2 (14:24→23:15)
[2020-11-21] MEDS: FAT EMULSION 20% 250 ML IV SCH (15:42)
[2020-11-21] MEDS: ENOXAPARIN 40 MG/0.4 ML SYRINGE SUBCUT SCH (16:20)
[2020-11-21] MEDS ORDERED: MULTIVITAMIN IV SCH (17:00)
[2020-11-21] MEDS ORDERED: DEXTROSE 10% 1,000 ML IV PRN (17:00)
[2020-11-21] MEDS ORDERED: [UNRECOGNIZED DRUG - OTHER] IV SCH (17:00)
[2020-11-21] MEDS ORDERED: INSULIN REGULAR IV SCH (17:00)
[2020-11-21] MEDS: MORPHINE 2 MG/1 ML SYRINGE IV PRN (22:19)
[2020-11-21] MEDS: POTASSIUM CHLORIDE INJ 10 MEQ in SODIUM CHLORIDE 0.9% 1,000 ML IV SCH (23:16)
[2020-11-22] MEDS: PIPERACILLIN/TAZOBACTAM 3,375 MG in SODIUM CHLORIDE 0.9% 100 ML IV SCH ×3 (06:09→21:00)
[2020-11-22] MEDS: LACTATED RINGERS 1,000 ML IV SCH ×2 (06:10→22:29)
[2020-11-22] MEDS: LEVOTHYROXINE 100 MCG VIAL IV SCH (06:10)
[2020-11-22 06:49] LABS: Basophils # 0.1 10*3/uL (0.0-0.2); Basophils % 0.8 % (0.0-0.8); Eosinophils # 0.3 10*3/uL (0.0-0.87); Eosinophils % 4.2 % (0.00-10.9); Hematocrit 31.4 VOL% (42.0-52.0); Hemoglobin 10.3 GM/DL (14.0-18.0); Immature Granulocytes % 0.6 %; Immature Granulocytes Absolute 0.04 #; Lymphocytes # 1.2 10*3/uL (1.4-4.0); Lymphocytes % 18.5 % (21.2-54.2); Mean Corpuscular HGB Conc 32.8 GM/DL (32-36); Mean Corpuscular Volume 96.3 FL (87-102); Mean Platelet Volume 9.1 FL (9.6-12.0); Neutrophils % 66.9 % (38.7-73.9); Platelet Count 241 T/CUMM (130-400); Red Blood Count 3.26 MC/CUMM (3.8-5.5); White Blood Count 6.6 T/CUMM (4-12)
[2020-11-22 07:11] LABS: Calcium 8.2 MG/DL (8.5-10.1); Osmolality,Calculated 283.5 MOS/KG (273-304); Potassium 2.9 MMOL/L (3.5-5.1)
[2020-11-22] MEDS: PANTOPRAZOLE 40 MG VIAL IV SCH (09:44)
[2020-11-22] MEDS: INSULIN REGULAR 100 UNIT/ML SUBCUT SCH ×4 (09:44→21:01)
[2020-11-22] MEDS: POTASSIUM CHLORIDE RIDER 20 MEQ/100 ML PREMIX IV PRN ×2 (10:19→12:07)
[2020-11-22] MEDS ORDERED: MAGNESIUM SULF RIDER 2 GM/50 ML PREMIX IV ONE (14:00)
[2020-11-22] MEDS: FAT EMULSION 20% 250 ML IV SCH (15:30)
[2020-11-22] MEDS: ENOXAPARIN 40 MG/0.4 ML SYRINGE SUBCUT SCH (16:51)
[2020-11-22] MEDS ORDERED: MULTIVITAMIN IV SCH (17:00)
[2020-11-22] MEDS ORDERED: [UNRECOGNIZED DRUG - OTHER] IV SCH (17:00)
[2020-11-22] MEDS ORDERED: INSULIN REGULAR IV SCH (17:00)
[2020-11-22] MEDS: MULTIVITAMIN IV SCH (18:11)
[2020-11-22] MEDS: [UNRECOGNIZED DRUG - OTHER] IV SCH (18:11)
[2020-11-22] MEDS: INSULIN REGULAR IV SCH (18:11)
[2020-11-22] MEDS: BISACODYL 10 MG SUPP RECTAL SCH (20:57)
[2020-11-23] MEDS: MORPHINE 2 MG/1 ML SYRINGE IV PRN ×2 (00:17→22:00)
[2020-11-23] MEDS: LACTATED RINGERS 1,000 ML IV SCH ×4 (01:29→22:04)
[2020-11-23] MEDS: PIPERACILLIN/TAZOBACTAM 3,375 MG in SODIUM CHLORIDE 0.9% 100 ML IV SCH ×3 (05:11→22:03)
[2020-11-23] MEDS: [UNRECOGNIZED DRUG - OTHER] IV SCH (05:19)
[2020-11-23] MEDS: MULTIVITAMIN IV SCH ×2 (05:19→18:04)
[2020-11-23] MEDS: INSULIN REGULAR IV SCH ×2 (05:19→18:04)
[2020-11-23] MEDS: LEVOTHYROXINE 100 MCG VIAL IV SCH (05:46)
[2020-11-23] MEDS: INSULIN REGULAR 100 UNIT/ML SUBCUT SCH ×4 (09:47→22:02)
[2020-11-23] MEDS: PANTOPRAZOLE 40 MG VIAL IV SCH (10:47)
[2020-11-23 13:11] LABS: Calcium 8.2 MG/DL (8.5-10.1); Osmolality,Calculated 291.8 MOS/KG (273-304); Potassium 3.4 MMOL/L (3.5-5.1)
[2020-11-23] MEDS: BISACODYL 10 MG SUPP RECTAL SCH ×2 (15:24→22:03)
[2020-11-23] MEDS: ENOXAPARIN 40 MG/0.4 ML SYRINGE SUBCUT SCH (17:35)
[2020-11-23] MEDS: [UNRECOGNIZED DRUG - OTHER] IV SCH (18:04)
[2020-11-23] MEDS: FAT EMULSION 20% 250 ML IV SCH (18:11)
[2020-11-23] MEDS ORDERED: INSULIN GLARGINE 100 UNIT/ML SUBCUT SCH (21:00)
[2020-11-24] MEDS: MORPHINE 2 MG/1 ML SYRINGE IV PRN ×2 (00:49→22:14)
[2020-11-24] MEDS: INSULIN REGULAR 100 UNIT/ML SUBCUT SCH ×6 (01:02→22:13)
[2020-11-24] MEDS: INSULIN REGULAR IV SCH ×3 (04:06→15:59)
[2020-11-24] MEDS: [UNRECOGNIZED DRUG - OTHER] IV SCH ×2 (04:06→04:47)
[2020-11-24] MEDS: MULTIVITAMIN IV SCH ×3 (04:06→15:59)
[2020-11-24] MEDS: PIPERACILLIN/TAZOBACTAM 3,375 MG in SODIUM CHLORIDE 0.9% 100 ML IV SCH (04:09)
[2020-11-24] MEDS: LACTATED RINGERS 1,000 ML IV SCH ×3 (04:54→23:14)
[2020-11-24] MEDS: LEVOTHYROXINE 100 MCG VIAL IV SCH (05:30)
[2020-11-24 07:10] LABS: Basophils % 0.5 % (0.0-0.8); Eosinophils # 0.5 10*3/uL (0.0-0.87); Eosinophils % 7.5 % (0.00-10.9); Hematocrit 31.1 VOL% (42.0-52.0); Hemoglobin 10.1 GM/DL (14.0-18.0); Immature Granulocytes % 0.7 %; Immature Granulocytes Absolute 0.04 #; Lymphocytes # 1.2 10*3/uL (1.4-4.0); Lymphocytes % 18.7 % (21.2-54.2); Mean Corpuscular HGB Conc 32.5 GM/DL (32-36); Mean Corpuscular Volume 95.4 FL (87-102); Mean Platelet Volume 9.9 FL (9.6-12.0); Monocytes % 8.6 % (1.7-12.7); Platelet Count 164 T/CUMM (130-400); Red Blood Count 3.26 MC/CUMM (3.8-5.5); Red Cell Distribution Width 13.9 % (9.3-17.3); White Blood Count 6.2 T/CUMM (4-12)
[2020-11-24 07:39] LABS: Calcium 8.1 MG/DL (8.5-10.1); Osmolality,Calculated 282.7 MOS/KG (273-304); Potassium 3.2 MMOL/L (3.5-5.1)
[2020-11-24] MEDS: BISACODYL 10 MG SUPP RECTAL SCH ×2 (09:20→22:13)
[2020-11-24] MEDS: PANTOPRAZOLE 40 MG VIAL IV SCH (09:20)
[2020-11-24] MEDS ORDERED: MAGNESIUM SULF RIDER 2 GM/50 ML PREMIX IV ONE (15:00)
[2020-11-24] MEDS: POTASSIUM CHLORIDE IV SCH (15:59)
[2020-11-24] MEDS: ENOXAPARIN 40 MG/0.4 ML SYRINGE SUBCUT SCH (15:59)
[2020-11-24] MEDS: [UNRECOGNIZED DRUG - OTHER] IV SCH (15:59)
[2020-11-25] MEDS: INSULIN REGULAR 100 UNIT/ML SUBCUT SCH ×6 (01:29→21:22)
[2020-11-25] MEDS: INSULIN REGULAR IV SCH ×2 (03:58→16:43)
[2020-11-25] MEDS: [UNRECOGNIZED DRUG - OTHER] IV SCH ×2 (03:58→16:43)
[2020-11-25] MEDS: POTASSIUM CHLORIDE IV SCH ×2 (03:58→16:43)
[2020-11-25] MEDS: MULTIVITAMIN IV SCH ×2 (03:58→16:43)
[2020-11-25] MEDS: LEVOTHYROXINE 100 MCG VIAL IV SCH (06:16)
[2020-11-25] MEDS ORDERED: KETAMINE 500 MG/10 ML VIAL ONE (07:32)
[2020-11-25] MEDS ORDERED: EPINEPHrine 1 MG/ML VIAL ONE (07:33)
[2020-11-25] MEDS ORDERED: DEXMEDETOMIDINE 200 MCG/2 ML VIAL ONE (07:33)
[2020-11-25] MEDS ORDERED: DEXAMETHASONE 4 MG/1 ML VIAL ONE (07:33)
[2020-11-25] MEDS ORDERED: ALBUMIN 5% 12.5 GM/250 ML VIAL IV ONE ×2 (07:45→08:49)
[2020-11-25] MEDS ORDERED: FAMOTIDINE 20 MG/2 ML VIAL IV ONE (07:48)
[2020-11-25] MEDS ORDERED: METOCLOPRAMIDE 10 MG/2 ML VIAL ONE (07:48)
[2020-11-25 07:49] LABS: Basophils % 0.4 % (0.0-0.8); Eosinophils # 0.4 10*3/uL (0.0-0.87); Eosinophils % 5.6 % (0.00-10.9); Hematocrit 33.6 VOL% (42.0-52.0); Hemoglobin 10.9 GM/DL (14.0-18.0); Immature Granulocytes % 0.6 %; Immature Granulocytes Absolute 0.04 #; Lymphocytes # 1.2 10*3/uL (1.4-4.0); Lymphocytes % 17.5 % (21.2-54.2); Mean Corpuscular HGB Conc 32.4 GM/DL (32-36); Mean Corpuscular Volume 94.9 FL (87-102); Mean Platelet Volume 9.3 FL (9.6-12.0); Monocytes % 8.9 % (1.7-12.7); Platelet Count 194 T/CUMM (130-400); Red Blood Count 3.54 MC/CUMM (3.8-5.5); Red Cell Distribution Width 13.9 % (9.3-17.3); White Blood Count 6.7 T/CUMM (4-12)
[2020-11-25] MEDS ORDERED: ePHEDrine 50 MG/ML VIAL ONE (07:52)
[2020-11-25 08:04] LABS: Calcium 7.8 MG/DL (8.5-10.1); Osmolality,Calculated 282.7 MOS/KG (273-304); Potassium 3.2 MMOL/L (3.5-5.1)
[2020-11-25] MEDS ORDERED: LIDOCAINE 2% 5 ML VIAL ONE (08:18)
[2020-11-25] MEDS ORDERED: ROCURONIUM 50 MG/5 ML VIAL IV ONE (08:18)
[2020-11-25] MEDS ORDERED: ETOMIDATE 40 MG/20 ML VIAL IV ONE (08:18)
[2020-11-25] MEDS ORDERED: SUCCINYLCHOLINE 200 MG/10 ML VIAL ONE (08:18)
[2020-11-25] MEDS ORDERED: HEPARIN/NACL 0.9% 2 UNITS/ML 1,000 UNIT/500 ML BAG IV ONE (08:21)
[2020-11-25] MEDS ORDERED: CALCIUM CHLORIDE 1,000 MG/10 ML VIAL IV ONE (08:49)
[2020-11-25] MEDS ORDERED: PHENYLEPHRINE 1 MG/10 ML SYRINGE IV ONE (09:55)
[2020-11-25] MEDS ORDERED: SEVOFLURANE 1 UNIT/15 MINUTE INH ONE ×5 (09:56→10:51)
[2020-11-25] MEDS ORDERED: GLYCOPYRROLATE 0.4 MG/2 ML VIAL ONE (10:09)
[2020-11-25] MEDS ORDERED: NEOSTIGMINE 10 MG/10 ML VIAL ONE (10:09)
[2020-11-25] MEDS ORDERED: SUGAMMADEX 200 MG/2 ML VIAL IV ONE (10:26)
[2020-11-25] MEDS: BISACODYL 10 MG SUPP RECTAL SCH ×2 (10:42→21:26)
[2020-11-25] MEDS: LACTATED RINGERS 1,000 ML IV SCH ×2 (12:00→21:29)
[2020-11-25] MEDS: PANTOPRAZOLE 40 MG VIAL IV SCH (12:06)
[2020-11-25] MEDS: MORPHINE 2 MG/1 ML SYRINGE IV PRN ×2 (12:30→21:22)
[2020-11-25] MEDS: POTASSIUM CHLORIDE RIDER 10 MEQ/100 ML PREMIX IV PRN ×3 (14:00→17:08)
[2020-11-25] MEDS: ENOXAPARIN 40 MG/0.4 ML SYRINGE SUBCUT SCH (15:27)
[2020-11-26] MEDS: INSULIN REGULAR 100 UNIT/ML SUBCUT SCH ×6 (00:35→21:32)
[2020-11-26] MEDS: MULTIVITAMIN IV SCH ×2 (04:47→15:36)
[2020-11-26] MEDS: INSULIN REGULAR IV SCH ×2 (04:47→15:36)
[2020-11-26] MEDS: POTASSIUM CHLORIDE IV SCH ×2 (04:47→15:36)
[2020-11-26] MEDS: [UNRECOGNIZED DRUG - OTHER] IV SCH ×2 (04:47→15:36)
[2020-11-26] MEDS: LEVOTHYROXINE 100 MCG VIAL IV SCH (06:15)
[2020-11-26] MEDS: PANTOPRAZOLE 40 MG VIAL IV SCH (08:31)
[2020-11-26] MEDS: BISACODYL 10 MG SUPP RECTAL SCH ×2 (08:32→22:00)
[2020-11-26] MEDS ORDERED: SODIUM CHLORIDE 0.9% 1,000 ML IV ONE (08:39)
[2020-11-26] MEDS: LACTATED RINGERS 1,000 ML IV SCH ×2 (12:00→22:15)
[2020-11-26] MEDS: ENOXAPARIN 40 MG/0.4 ML SYRINGE SUBCUT SCH (15:35)
[2020-11-26 15:41] LABS: Basophils % 0.3 % (0.0-0.8); Eosinophils # 0.1 10*3/uL (0.0-0.87); Eosinophils % 1.1 % (0.00-10.9); Hematocrit 31.2 VOL% (42.0-52.0); Hemoglobin 9.5 GM/DL (14.0-18.0); Immature Granulocytes % 0.7 %; Immature Granulocytes Absolute 0.08 #; Lymphocytes # 1.5 10*3/uL (1.4-4.0); Lymphocytes % 13.5 % (21.2-54.2); Mean Corpuscular HGB Conc 30.4 GM/DL (32-36); Mean Corpuscular Volume 98.7 FL (87-102); Mean Platelet Volume 9.9 FL (9.6-12.0); Monocytes % 8.3 % (1.7-12.7); Neutrophils % 76.1 % (38.7-73.9); Platelet Count 208 T/CUMM (130-400); Red Blood Count 3.16 MC/CUMM (3.8-5.5); Red Cell Distribution Width 14.3 % (9.3-17.3); White Blood Count 10.9 T/CUMM (4-12)
[2020-11-26 16:37] LABS: Albumin 2.1 G/DL (3.4-5.0); Bilirubin,Total 0.5 MG/DL (0.20-1.00); Calcium 7.8 MG/DL (8.5-10.1); Potassium 3.8 MMOL/L (3.5-5.1); Total Protein 5.8 G/DL (6.4-8.2)
[2020-11-26 16:38] LABS: Osmolality,Calculated 287.4 MOS/KG (273-304)
[2020-11-26] MEDS: MORPHINE 2 MG/1 ML SYRINGE IV PRN ×2 (17:27→21:32)
[2020-11-26] MEDS: INSULIN GLARGINE 100 UNIT/ML SUBCUT SCH (21:31)
[2020-11-27] MEDS: INSULIN REGULAR 100 UNIT/ML SUBCUT SCH ×6 (00:10→21:43)
[2020-11-27] MEDS: MORPHINE 2 MG/1 ML SYRINGE IV PRN ×5 (02:50→22:18)
[2020-11-27] MEDS: LACTATED RINGERS 1,000 ML IV SCH ×3 (02:52→20:25)
[2020-11-27] MEDS: [UNRECOGNIZED DRUG - OTHER] IV SCH ×2 (02:53→16:32)
[2020-11-27] MEDS: INSULIN REGULAR IV SCH ×2 (02:53→16:32)
[2020-11-27] MEDS: MULTIVITAMIN IV SCH ×2 (02:53→16:32)
[2020-11-27] MEDS: POTASSIUM CHLORIDE IV SCH ×2 (02:53→16:32)
[2020-11-27 05:30] LABS: Basophils % 0.3 % (0.0-0.8); Eosinophils # 0.2 10*3/uL (0.0-0.87); Eosinophils % 2.3 % (0.00-10.9); Hematocrit 29.1 VOL% (42.0-52.0); Hemoglobin 9.3 GM/DL (14.0-18.0); Immature Granulocytes % 0.4 %; Immature Granulocytes Absolute 0.04 #; Lymphocytes # 1.3 10*3/uL (1.4-4.0); Lymphocytes % 13.8 % (21.2-54.2); Mean Corpuscular Volume 96.7 FL (87-102); Mean Platelet Volume 10.1 FL (9.6-12.0); Neutrophils % 71.2 % (38.7-73.9); Platelet Count 185 T/CUMM (130-400); Red Blood Count 3.01 MC/CUMM (3.8-5.5); Red Cell Distribution Width 14.5 % (9.3-17.3); White Blood Count 9.5 T/CUMM (4-12)
[2020-11-27] MEDS: LEVOTHYROXINE 100 MCG VIAL IV SCH (05:30)
[2020-11-27 05:48] LABS: Calcium 7.7 MG/DL (8.5-10.1); Potassium 3.9 MMOL/L (3.5-5.1)
[2020-11-27 05:56] LABS: Bilirubin,Total 1.3 MG/DL (0.20-1.00); Calcium 7.8 MG/DL (8.5-10.1); Potassium 3.9 MMOL/L (3.5-5.1); Total Protein 5.6 G/DL (6.4-8.2)
[2020-11-27 07:23] LABS: Hypochromasia 2+; Platelet Estimate Normal
[2020-11-27] MEDS: PANTOPRAZOLE 40 MG VIAL IV SCH (09:48)
[2020-11-27] MEDS: BISACODYL 10 MG SUPP RECTAL SCH ×2 (09:49→21:36)
[2020-11-27] MEDS ORDERED: FUROSEMIDE 40 MG/4 ML VIAL IV ONE (13:01)
[2020-11-27] MEDS: ONDANSETRON 4 MG/2 ML VIAL IV PRN (13:12)
[2020-11-27] MEDS ORDERED: CEFEPIME 1,000 MG in SODIUM CHLORIDE 0.9% 100 ML IV SCH (14:00)
[2020-11-27] MEDS: FAT EMULSION 20% 250 ML IV SCH (16:35)
[2020-11-27] MEDS: ENOXAPARIN 40 MG/0.4 ML SYRINGE SUBCUT SCH (16:39)
[2020-11-27] MEDS: INSULIN GLARGINE 100 UNIT/ML SUBCUT SCH (21:35)
[2020-11-27] MEDS: CEFEPIME 2,000 MG in SODIUM CHLORIDE 0.9% 100 ML IV SCH (21:35)
[2020-11-28] MEDS: INSULIN REGULAR 100 UNIT/ML SUBCUT SCH ×6 (00:46→20:57)
[2020-11-28] MEDS: MORPHINE 2 MG/1 ML SYRINGE IV PRN ×7 (00:46→21:20)
[2020-11-28] MEDS ORDERED: guaiFENesin 200 MG/10 ML UDCUP PO SCH (01:17)
[2020-11-28] MEDS ORDERED: guaiFENesin 200 MG/10 ML UDCUP PO PRN (02:09)
[2020-11-28] MEDS: POTASSIUM CHLORIDE IV SCH ×2 (03:13→16:37)
[2020-11-28] MEDS: INSULIN REGULAR IV SCH ×2 (03:13→16:37)
[2020-11-28] MEDS: MULTIVITAMIN IV SCH ×2 (03:13→16:37)
[2020-11-28] MEDS: [UNRECOGNIZED DRUG - OTHER] IV SCH ×2 (03:13→16:37)
[2020-11-28] MEDS: ONDANSETRON 4 MG/2 ML VIAL IV PRN ×2 (03:23→15:08)
[2020-11-28 05:04] LABS: Basophils % 0.2 % (0.0-0.8); Eosinophils # 0.2 10*3/uL (0.0-0.87); Eosinophils % 2.5 % (0.00-10.9); Hemoglobin 9.6 GM/DL (14.0-18.0); Immature Granulocytes % 0.6 %; Immature Granulocytes Absolute 0.05 #; Lymphocytes # 0.9 10*3/uL (1.4-4.0); Lymphocytes % 10.4 % (21.2-54.2); Mean Corpuscular Volume 95.8 FL (87-102); Mean Platelet Volume 9.4 FL (9.6-12.0); Neutrophils % 75.3 % (38.7-73.9); Platelet Count 198 T/CUMM (130-400); Red Blood Count 3.13 MC/CUMM (3.8-5.5); Red Cell Distribution Width 14.6 % (9.3-17.3); White Blood Count 8.8 T/CUMM (4-12)
[2020-11-28 05:37] LABS: Calcium 8.2 MG/DL (8.5-10.1); Osmolality,Calculated 277.2 MOS/KG (273-304); Potassium 3.9 MMOL/L (3.5-5.1)
[2020-11-28 05:39] LABS: Eosinophils 2 % (0-10); Hypochromasia 1+; Lymphocytes 16 % (20-55); Microcytosis 1+; Platelet Estimate Adequate; Segmented Neutrophils 75 % (50-85); Total Cells Counted 100
[2020-11-28] MEDS: CEFEPIME 2,000 MG in SODIUM CHLORIDE 0.9% 100 ML IV SCH (05:39)
[2020-11-28] MEDS: LEVOTHYROXINE 100 MCG VIAL IV SCH (05:39)
[2020-11-28] MEDS: PANTOPRAZOLE 40 MG VIAL IV SCH (08:44)
[2020-11-28] MEDS: BISACODYL 10 MG SUPP RECTAL SCH ×2 (09:04→20:57)
[2020-11-28] MEDS: CEFEPIME 1,000 MG in SODIUM CHLORIDE 0.9% 100 ML IV SCH ×3 (12:06→23:25)
[2020-11-28] MEDS: ENOXAPARIN 40 MG/0.4 ML SYRINGE SUBCUT SCH (15:07)
[2020-11-28] MEDS: LACTATED RINGERS 1,000 ML IV SCH (16:37)
[2020-11-28] MEDS: INSULIN GLARGINE 100 UNIT/ML SUBCUT SCH (20:57)
[2020-11-29] MEDS: INSULIN REGULAR 100 UNIT/ML SUBCUT SCH ×6 (00:44→20:28)
[2020-11-29] MEDS: [UNRECOGNIZED DRUG - OTHER] IV SCH ×2 (03:29→17:01)
[2020-11-29] MEDS: INSULIN REGULAR IV SCH ×2 (03:29→17:01)
[2020-11-29] MEDS: MULTIVITAMIN IV SCH ×2 (03:29→17:01)
[2020-11-29] MEDS: POTASSIUM CHLORIDE IV SCH ×2 (03:29→17:01)
[2020-11-29] MEDS: LEVOTHYROXINE 100 MCG VIAL IV SCH (06:26)
[2020-11-29] MEDS: CEFEPIME 1,000 MG in SODIUM CHLORIDE 0.9% 100 ML IV SCH ×3 (06:27→18:16)
[2020-11-29] MEDS: PANTOPRAZOLE 40 MG VIAL IV SCH (08:38)
[2020-11-29] MEDS: BISACODYL 10 MG SUPP RECTAL SCH ×2 (08:38→20:29)
[2020-11-29] MEDS: MORPHINE 2 MG/1 ML SYRINGE IV PRN ×3 (10:21→20:45)
[2020-11-29] MEDS ORDERED: POTASSIUM PHOSPHATE 15 MMOL in SODIUM CHLORIDE 0.9% 100 ML IV ONE (11:30)
[2020-11-29] MEDS: LACTATED RINGERS 1,000 ML IV SCH (13:42)
[2020-11-29] MEDS: ENOXAPARIN 40 MG/0.4 ML SYRINGE SUBCUT SCH (17:02)
[2020-11-29] MEDS: INSULIN GLARGINE 100 UNIT/ML SUBCUT SCH (20:29)
[2020-11-30] MEDS: CEFEPIME 1,000 MG in SODIUM CHLORIDE 0.9% 100 ML IV SCH ×5 (00:18→23:30)
[2020-11-30] MEDS: INSULIN REGULAR 100 UNIT/ML SUBCUT SCH ×7 (00:40→23:30)
[2020-11-30] MEDS: MORPHINE 2 MG/1 ML SYRINGE IV PRN ×5 (00:47→22:00)
[2020-11-30] MEDS: INSULIN REGULAR IV SCH ×2 (04:03→16:24)
[2020-11-30] MEDS: MULTIVITAMIN IV SCH ×2 (04:03→16:24)
[2020-11-30] MEDS: POTASSIUM CHLORIDE IV SCH ×2 (04:03→16:24)
[2020-11-30] MEDS: [UNRECOGNIZED DRUG - OTHER] IV SCH ×2 (04:03→16:24)
[2020-11-30] MEDS: LEVOTHYROXINE 100 MCG VIAL IV SCH (06:49)
[2020-11-30] MEDS: PANTOPRAZOLE 40 MG VIAL IV SCH (09:50)
[2020-11-30] MEDS: BISACODYL 10 MG SUPP RECTAL SCH ×2 (10:02→20:44)
[2020-11-30] MEDS: LACTATED RINGERS 1,000 ML IV SCH ×2 (12:50→20:43)
[2020-11-30] MEDS: FAT EMULSION 20% 250 ML IV SCH (15:11)
[2020-11-30] MEDS: ENOXAPARIN 40 MG/0.4 ML SYRINGE SUBCUT SCH (16:25)
[2020-11-30] MEDS: FAMOTIDINE 20 MG/2 ML VIAL IV PRN (18:31)
[2020-11-30] MEDS ORDERED: INSULIN GLARGINE 100 UNIT/ML SUBCUT SCH (21:00)
[2020-12-01] MEDS: MORPHINE 2 MG/1 ML SYRINGE IV PRN ×3 (01:11→23:00)
[2020-12-01] MEDS: [UNRECOGNIZED DRUG - OTHER] IV SCH ×2 (03:15→17:29)
[2020-12-01] MEDS: POTASSIUM CHLORIDE IV SCH ×2 (03:15→17:29)
[2020-12-01] MEDS: INSULIN REGULAR IV SCH ×2 (03:15→17:29)
[2020-12-01] MEDS: MULTIVITAMIN IV SCH ×2 (03:15→17:29)
[2020-12-01] MEDS: INSULIN REGULAR 100 UNIT/ML SUBCUT SCH ×5 (04:51→20:47)
[2020-12-01 05:08] LABS: Basophils % 0.6 % (0.0-0.8); Eosinophils # 0.2 10*3/uL (0.0-0.87); Eosinophils % 2.5 % (0.00-10.9); Hematocrit 28.8 VOL% (42.0-52.0); Hemoglobin 9.3 GM/DL (14.0-18.0); Immature Granulocytes % 0.4 %; Immature Granulocytes Absolute 0.03 #; Lymphocytes % 14.1 % (21.2-54.2); Mean Corpuscular HGB Conc 32.3 GM/DL (32-36); Mean Corpuscular Volume 94.4 FL (87-102); Mean Platelet Volume 9.4 FL (9.6-12.0); Monocytes % 12.7 % (1.7-12.7); Neutrophils % 69.7 % (38.7-73.9); Platelet Count 172 T/CUMM (130-400); Red Blood Count 3.05 MC/CUMM (3.8-5.5); White Blood Count 7.1 T/CUMM (4-12)
[2020-12-01 05:50] LABS: Calcium 8.4 MG/DL (8.5-10.1); Osmolality,Calculated 274.1 MOS/KG (273-304); Potassium 4.3 MMOL/L (3.5-5.1)
[2020-12-01] MEDS: LEVOTHYROXINE 100 MCG VIAL IV SCH (06:28)
[2020-12-01] MEDS: CEFEPIME 1,000 MG in SODIUM CHLORIDE 0.9% 100 ML IV SCH ×4 (06:29→23:05)
[2020-12-01] MEDS: LACTATED RINGERS 1,000 ML IV SCH ×2 (08:49→20:50)
[2020-12-01] MEDS: PANTOPRAZOLE 40 MG VIAL IV SCH (09:30)
[2020-12-01] MEDS: BISACODYL 10 MG SUPP RECTAL SCH ×3 (09:38→20:54)
[2020-12-01] MEDS: ENOXAPARIN 40 MG/0.4 ML SYRINGE SUBCUT SCH (17:29)
[2020-12-01] MEDS: INSULIN GLARGINE 100 UNIT/ML SUBCUT SCH (20:48)
[2020-12-02] MEDS: INSULIN REGULAR 100 UNIT/ML SUBCUT SCH ×6 (00:40→20:59)
[2020-12-02] MEDS: INSULIN REGULAR IV SCH ×2 (05:02→17:59)
[2020-12-02] MEDS: [UNRECOGNIZED DRUG - OTHER] IV SCH ×2 (05:02→17:59)
[2020-12-02] MEDS: POTASSIUM CHLORIDE IV SCH ×2 (05:02→17:59)
[2020-12-02] MEDS: MULTIVITAMIN IV SCH ×2 (05:02→17:59)
[2020-12-02] MEDS: MORPHINE 2 MG/1 ML SYRINGE IV PRN ×4 (05:16→20:59)
[2020-12-02 06:17] LABS: Hemoglobin 8.7 GM/DL (14.0-18.0)
[2020-12-02] MEDS: LEVOTHYROXINE 100 MCG VIAL IV SCH (06:19)
[2020-12-02] MEDS: CEFEPIME 1,000 MG in SODIUM CHLORIDE 0.9% 100 ML IV SCH ×3 (06:22→17:30)
[2020-12-02 06:31] LABS: Calcium 8.1 MG/DL (8.5-10.1); Osmolality,Calculated 275.1 MOS/KG (273-304)
[2020-12-02] MEDS: PANTOPRAZOLE 40 MG VIAL IV SCH (08:17)
[2020-12-02] MEDS: BISACODYL 10 MG SUPP RECTAL SCH ×2 (08:17→22:20)
[2020-12-02] MEDS: ENOXAPARIN 40 MG/0.4 ML SYRINGE SUBCUT SCH (16:51)
[2020-12-02] MEDS: LACTATED RINGERS 1,000 ML IV SCH ×2 (18:22→21:44)
[2020-12-02] MEDS: INSULIN GLARGINE 100 UNIT/ML SUBCUT SCH (20:59)
[2020-12-03] MEDS: CEFEPIME 1,000 MG in SODIUM CHLORIDE 0.9% 100 ML IV SCH ×4 (00:54→19:16)
[2020-12-03] MEDS: MORPHINE 2 MG/1 ML SYRINGE IV PRN ×7 (00:58→21:46)
[2020-12-03] MEDS: INSULIN REGULAR 100 UNIT/ML SUBCUT SCH ×6 (01:06→20:51)
[2020-12-03 05:35] LABS: Hematocrit 29.6 VOL% (42.0-52.0); Hemoglobin 9.6 GM/DL (14.0-18.0)
[2020-12-03] MEDS: LEVOTHYROXINE 100 MCG VIAL IV SCH (05:51)
[2020-12-03] MEDS: [UNRECOGNIZED DRUG - OTHER] IV SCH ×2 (06:20→17:26)
[2020-12-03] MEDS: INSULIN REGULAR IV SCH ×2 (06:20→17:26)
[2020-12-03] MEDS: POTASSIUM CHLORIDE IV SCH ×2 (06:20→17:26)
[2020-12-03] MEDS: MULTIVITAMIN IV SCH ×2 (06:20→17:26)
[2020-12-03] MEDS: BISACODYL 10 MG SUPP RECTAL SCH ×2 (09:34→21:03)
[2020-12-03] MEDS: PANTOPRAZOLE 40 MG VIAL IV SCH (09:34)
[2020-12-03 14:30] LABS: Bilirubin,Urine Negative (Negative); Blood, Urine Negative (Negative); Glucose,Urine (UA) 50 mg/dL (Negative); Ketones,Urine Negative (Negative); Mucus,Urine Occasional /LPF (Occasional); Nitrite,Urine Negative (Negative); Protein,Urine Negative; RBC,Urine 2 /HPF (0-4); Urine Appearance CLEAR (Clear); Urine Color Yellow (Yellow); Urine Specific Gravity 1.011 (1.001-1.035); Urine Urobilinogen < 2.0 EU/DL (0.2-1.0)
[2020-12-03] MEDS: ENOXAPARIN 40 MG/0.4 ML SYRINGE SUBCUT SCH (15:01)
[2020-12-03] MEDS: INSULIN GLARGINE 100 UNIT/ML SUBCUT SCH (20:51)
[2020-12-03] MEDS: LACTATED RINGERS 1,000 ML IV SCH (20:51)
[2020-12-04] MEDS: CEFEPIME 1,000 MG in SODIUM CHLORIDE 0.9% 100 ML IV SCH ×4 (00:21→17:41)
[2020-12-04] MEDS: INSULIN REGULAR 100 UNIT/ML SUBCUT SCH ×6 (00:22→21:22)
[2020-12-04] MEDS: MORPHINE 2 MG/1 ML SYRINGE IV PRN ×7 (01:51→23:17)
[2020-12-04] MEDS: POTASSIUM CHLORIDE IV SCH ×2 (04:49→17:31)
[2020-12-04] MEDS: MULTIVITAMIN IV SCH ×2 (04:49→17:31)
[2020-12-04] MEDS: INSULIN REGULAR IV SCH ×2 (04:49→17:31)
[2020-12-04] MEDS: [UNRECOGNIZED DRUG - OTHER] IV SCH ×2 (04:49→17:31)
[2020-12-04 05:35] LABS: Basophils % 0.5 % (0.0-0.8); Eosinophils # 0.3 10*3/uL (0.0-0.87); Eosinophils % 4.2 % (0.00-10.9); Hematocrit 27.8 VOL% (42.0-52.0); Hemoglobin 8.9 GM/DL (14.0-18.0); Immature Granulocytes % 0.8 %; Immature Granulocytes Absolute 0.05 #; Lymphocytes # 1.4 10*3/uL (1.4-4.0); Lymphocytes % 22.6 % (21.2-54.2); Mean Corpuscular Volume 93.6 FL (87-102); Mean Platelet Volume 9.3 FL (9.6-12.0); Monocytes % 9.1 % (1.7-12.7); Neutrophils % 62.8 % (38.7-73.9); Platelet Count 218 T/CUMM (130-400); Red Blood Count 2.97 MC/CUMM (3.8-5.5); Red Cell Distribution Width 14.6 % (9.3-17.3); White Blood Count 6.2 T/CUMM (4-12)
[2020-12-04] MEDS: LEVOTHYROXINE 100 MCG VIAL IV SCH (05:48)
[2020-12-04 06:09] LABS: Eosinophils 8 % (0-10); Lymphocytes 20 % (20-55); Platelet Estimate Normal; Segmented Neutrophils 63 % (50-85); Total Cells Counted 100
[2020-12-04 06:10] LABS: Calcium 8.2 MG/DL (8.5-10.1); Osmolality,Calculated 273.2 MOS/KG (273-304); Potassium 4.2 MMOL/L (3.5-5.1)
[2020-12-04] MEDS: BISACODYL 10 MG SUPP RECTAL SCH ×2 (09:27→20:42)
[2020-12-04] MEDS: PANTOPRAZOLE 40 MG VIAL IV SCH (09:35)
[2020-12-04] MEDS: FAT EMULSION 20% 250 ML IV SCH (15:17)
[2020-12-04] MEDS: ENOXAPARIN 40 MG/0.4 ML SYRINGE SUBCUT SCH (17:39)
[2020-12-04] MEDS: LACTATED RINGERS 1,000 ML IV SCH (20:38)
[2020-12-04] MEDS: INSULIN GLARGINE 100 UNIT/ML SUBCUT SCH (21:23)
[2020-12-05] MEDS: INSULIN REGULAR 100 UNIT/ML SUBCUT SCH ×6 (00:06→21:26)
[2020-12-05] MEDS: CEFEPIME 1,000 MG in SODIUM CHLORIDE 0.9% 100 ML IV SCH ×4 (00:06→17:54)
[2020-12-05] MEDS: MORPHINE 2 MG/1 ML SYRINGE IV PRN ×5 (01:47→18:27)
[2020-12-05] MEDS: POTASSIUM CHLORIDE IV SCH ×2 (04:33→16:57)
[2020-12-05] MEDS: [UNRECOGNIZED DRUG - OTHER] IV SCH ×2 (04:33→16:57)
[2020-12-05] MEDS: MULTIVITAMIN IV SCH ×2 (04:33→16:57)
[2020-12-05] MEDS: INSULIN REGULAR IV SCH ×2 (04:33→16:57)
[2020-12-05 05:54] LABS: Hematocrit 27.2 VOL% (42.0-52.0); Hemoglobin 8.9 GM/DL (14.0-18.0)
[2020-12-05] MEDS: LEVOTHYROXINE 100 MCG VIAL IV SCH (06:02)
[2020-12-05 06:19] LABS: Calcium 8.3 MG/DL (8.5-10.1); Osmolality,Calculated 272.2 MOS/KG (273-304); Potassium 4.4 MMOL/L (3.5-5.1)
[2020-12-05] MEDS: BISACODYL 10 MG SUPP RECTAL SCH ×2 (09:34→22:15)
[2020-12-05] MEDS: PANTOPRAZOLE 40 MG VIAL IV SCH (09:34)
[2020-12-05] MEDS: KETOROLAC 15 MG/1 ML VIAL IV PRN ×2 (11:13→21:25)
[2020-12-05] MEDS: ENOXAPARIN 40 MG/0.4 ML SYRINGE SUBCUT SCH (15:58)
[2020-12-05] MEDS: ONDANSETRON 4 MG/2 ML VIAL IV PRN ×2 (16:12→21:25)
[2020-12-05] MEDS: INSULIN GLARGINE 100 UNIT/ML SUBCUT SCH (21:26)
[2020-12-06] MEDS: INSULIN REGULAR 100 UNIT/ML SUBCUT SCH ×6 (00:44→21:49)
[2020-12-06] MEDS: LACTATED RINGERS 1,000 ML IV SCH ×2 (00:46→13:41)
[2020-12-06] MEDS: KETOROLAC 15 MG/1 ML VIAL IV PRN (03:42)
[2020-12-06] MEDS: ONDANSETRON 4 MG/2 ML VIAL IV PRN (03:43)
[2020-12-06] MEDS: INSULIN REGULAR IV SCH ×2 (03:48→16:53)
[2020-12-06] MEDS: MULTIVITAMIN IV SCH ×2 (03:48→16:53)
[2020-12-06] MEDS: POTASSIUM CHLORIDE IV SCH ×2 (03:48→16:53)
[2020-12-06] MEDS: [UNRECOGNIZED DRUG - OTHER] IV SCH (03:48)
[2020-12-06] MEDS ORDERED: CEFEPIME 1,000 MG in SODIUM CHLORIDE 0.9% 100 ML IV SCH (06:00)
[2020-12-06] MEDS: LEVOTHYROXINE 100 MCG VIAL IV SCH (06:15)
[2020-12-06] MEDS: MORPHINE 2 MG/1 ML SYRINGE IV PRN ×4 (08:51→21:38)
[2020-12-06] MEDS: BISACODYL 10 MG SUPP RECTAL SCH ×2 (09:00→21:39)
[2020-12-06] MEDS: PANTOPRAZOLE 40 MG VIAL IV SCH (10:14)
[2020-12-06] MEDS: ENOXAPARIN 40 MG/0.4 ML SYRINGE SUBCUT SCH (16:53)
[2020-12-06] MEDS: [UNRECOGNIZED DRUG - OTHER] IV SCH (16:53)
[2020-12-06] MEDS: traMADol 50 MG TABLET PO SCH (21:50)
[2020-12-06] MEDS: INSULIN GLARGINE 100 UNIT/ML SUBCUT SCH (21:50)
[2020-12-07] MEDS: ONDANSETRON 4 MG/2 ML VIAL IV PRN (00:40)
[2020-12-07] MEDS: KETOROLAC 15 MG/1 ML VIAL IV PRN ×3 (00:40→22:59)
[2020-12-07] MEDS: INSULIN REGULAR 100 UNIT/ML SUBCUT SCH ×6 (00:50→20:13)
[2020-12-07] MEDS: LACTATED RINGERS 1,000 ML IV SCH ×2 (03:03→22:56)
[2020-12-07] MEDS: MORPHINE 2 MG/1 ML SYRINGE IV PRN ×2 (03:57→06:15)
[2020-12-07 05:24] LABS: Basophils % 0.5 % (0.0-0.8); Eosinophils # 0.3 10*3/uL (0.0-0.87); Eosinophils % 4.7 % (0.00-10.9); Hematocrit 26.2 VOL% (42.0-52.0); Hemoglobin 8.3 GM/DL (14.0-18.0); Immature Granulocytes % 0.6 %; Immature Granulocytes Absolute 0.04 #; Lymphocytes # 1.3 10*3/uL (1.4-4.0); Lymphocytes % 19.4 % (21.2-54.2); Mean Corpuscular HGB Conc 31.7 GM/DL (32-36); Mean Corpuscular Volume 94.2 FL (87-102); Mean Platelet Volume 9.3 FL (9.6-12.0); Monocytes % 9.3 % (1.7-12.7); Neutrophils % 65.5 % (38.7-73.9); Platelet Count 232 T/CUMM (130-400); Red Blood Count 2.78 MC/CUMM (3.8-5.5); Red Cell Distribution Width 14.2 % (9.3-17.3); White Blood Count 6.5 T/CUMM (4-12)
[2020-12-07 05:47] LABS: Hypochromasia 1+; Microcytosis 1+; Platelet Estimate Adequate
[2020-12-07 05:55] LABS: Calcium 8.4 MG/DL (8.5-10.1); Osmolality,Calculated 273.4 MOS/KG (273-304); Potassium 4.4 MMOL/L (3.5-5.1)
[2020-12-07] MEDS: LEVOTHYROXINE 100 MCG VIAL IV SCH (06:14)
[2020-12-07] MEDS: traMADol 50 MG TABLET PO SCH ×2 (09:37→20:13)
[2020-12-07] MEDS: PANTOPRAZOLE 40 MG VIAL IV SCH (09:37)
[2020-12-07] MEDS: BISACODYL 10 MG SUPP RECTAL SCH ×2 (09:38→20:13)
[2020-12-07] MEDS: FAT EMULSION 20% 250 ML IV SCH (15:10)
[2020-12-07] MEDS: ENOXAPARIN 40 MG/0.4 ML SYRINGE SUBCUT SCH (15:45)
[2020-12-07] MEDS: INSULIN REGULAR IV SCH (16:48)
[2020-12-07] MEDS: POTASSIUM CHLORIDE IV SCH (16:48)
[2020-12-07] MEDS: [UNRECOGNIZED DRUG - OTHER] IV SCH (16:48)
[2020-12-07] MEDS: MULTIVITAMIN IV SCH (16:48)
[2020-12-07] MEDS: INSULIN GLARGINE 100 UNIT/ML SUBCUT SCH (21:13)
[2020-12-08] MEDS: ONDANSETRON 4 MG/2 ML VIAL IV PRN ×3 (01:02→18:02)
[2020-12-08] MEDS: INSULIN REGULAR 100 UNIT/ML SUBCUT SCH ×7 (01:03→23:29)
[2020-12-08] MEDS: LEVOTHYROXINE 100 MCG VIAL IV SCH (05:41)
[2020-12-08] MEDS: KETOROLAC 15 MG/1 ML VIAL IV PRN ×2 (09:21→23:33)
[2020-12-08] MEDS: PANTOPRAZOLE 40 MG VIAL IV SCH (09:24)
[2020-12-08] MEDS: BISACODYL 10 MG SUPP RECTAL SCH ×2 (09:43→21:03)
[2020-12-08] MEDS: traMADol 50 MG TABLET PO SCH ×2 (09:46→21:03)
[2020-12-08] MEDS ORDERED: PROMETHAZINE 25 MG/1 ML VIAL IM PRN (12:32)
[2020-12-08] MEDS: ENOXAPARIN 40 MG/0.4 ML SYRINGE SUBCUT SCH (17:54)
[2020-12-08] MEDS: LACTATED RINGERS 1,000 ML IV SCH (17:55)
[2020-12-08] MEDS: MORPHINE 2 MG/1 ML SYRINGE IV PRN (18:01)
[2020-12-08] MEDS: INSULIN GLARGINE 100 UNIT/ML SUBCUT SCH (21:03)
[2020-12-09] MEDS: INSULIN REGULAR 100 UNIT/ML SUBCUT SCH ×3 (03:17→12:41)
[2020-12-09] MEDS: LEVOTHYROXINE 100 MCG VIAL IV SCH (06:06)
[2020-12-09] MEDS: FAMOTIDINE 20 MG/2 ML VIAL IV PRN (06:20)
[2020-12-09] MEDS: BISACODYL 10 MG SUPP RECTAL SCH (08:28)
[2020-12-09] MEDS: PANTOPRAZOLE 40 MG VIAL IV SCH (08:29)
[2020-12-09] MEDS: traMADol 50 MG TABLET PO SCH (08:29)
[2020-12-09] MEDS: ONDANSETRON 4 MG/2 ML VIAL IV PRN (08:33)
[2020-12-09 11:31] VITALS: BP 110/61
[2020-12-09] MEDS: LACTATED RINGERS 1,000 ML IV SCH (12:41)
== END 2020-12-09 14:14 | disposition hospice, home (50) | DRG 423 ==
LOC: N.ED 11:49 → N.EDINP 18:47 → N.3E 20:04
PROVIDERS: ADMIT Surgery; ATTEND Surgery

== ENCOUNTER 2021-02-07 14:35 | Inpatient (IN) ==
[2021-02-07] MEDS ORDERED: SODIUM CHLORIDE 0.9% 1,000 ML IV STA ×2 (15:21→15:49)
[2021-02-07 16:18] LABS: Albumin 2.2 G/DL (3.4-5.0); Bilirubin,Total 1.2 MG/DL (0.20-1.00); Calcium 8.9 MG/DL (8.5-10.1); Osmolality,Calculated 270.5 MOS/KG (273-304); Prealbumin 7.3 MG/DL (20-40); Total Protein 8.2 G/DL (6.4-8.2)
[2021-02-07 16:25] LABS: Basophils # 0.1 10*3/uL (0.0-0.2); Basophils % 0.5 % (0.0-0.8); Eosinophils % 0.2 % (0.00-10.9); Hematocrit 40.8 VOL% (42.0-52.0); Hemoglobin 12.5 GM/DL (14.0-18.0); Immature Granulocytes % 0.5 %; Immature Granulocytes Absolute 0.06 #; Lymphocytes % 7.3 % (21.2-54.2); Mean Corpuscular HGB Conc 30.6 GM/DL (32-36); Mean Corpuscular Volume 94.9 FL (87-102); Mean Platelet Volume 9.3 FL (9.6-12.0); Monocytes % 6.4 % (1.7-12.7); Neutrophils % 85.1 % (38.7-73.9); Platelet Count 304 T/CUMM (130-400); Red Cell Distribution Width 17.8 % (9.3-17.3)
[2021-02-07] MEDS ORDERED: LACTATED RINGERS 500 ML IV ONE (17:16)
[2021-02-07] MEDS ORDERED: ONDANSETRON 4 MG/2 ML VIAL IV PRN (17:17)
[2021-02-07] MEDS ORDERED: ALBUTEROL 2.5 MG/3 ML NEB RESP TX PRN (17:17)
[2021-02-07] MEDS ORDERED: NOREPINEPHRINE 8 MG in SODIUM CHLORIDE 0.9% 242 ML IV PRN (17:17)
[2021-02-07] MEDS ORDERED: ENOXAPARIN 40 MG/0.4 ML SYRINGE SUBCUT SCH (17:30)
[2021-02-07] MEDS: PANTOPRAZOLE 40 MG VIAL IV SCH (17:38)
[2021-02-07] MEDS: oxyCODONE/ACETAMINOPHEN 5-325 MG TABLET PO PRN (18:50)
[2021-02-07] MEDS: LACTATED RINGERS 1,000 ML IV SCH (18:52)
[2021-02-07] MEDS: AMITRIPTYLINE 50 MG TABLET PO SCH ×2 (20:24→20:39)
[2021-02-08] MEDS: LACTATED RINGERS 1,000 ML IV SCH ×2 (04:50→14:59)
[2021-02-08 05:08] LABS: Basophils # 0.1 10*3/uL (0.0-0.2); Basophils % 0.4 % (0.0-0.8); Eosinophils # 0.1 10*3/uL (0.0-0.87); Eosinophils % 0.7 % (0.00-10.9); Hematocrit 33.2 VOL% (42.0-52.0); Immature Granulocytes % 0.8 %; Immature Granulocytes Absolute 0.11 #; Lymphocytes % 7.2 % (21.2-54.2); Mean Corpuscular HGB Conc 30.1 GM/DL (32-36); Mean Corpuscular Volume 94.6 FL (87-102); Mean Platelet Volume 9.2 FL (9.6-12.0); Monocytes % 7.9 % (1.7-12.7); Platelet Count 282 T/CUMM (130-400); Red Blood Count 3.51 MC/CUMM (3.8-5.5); Red Cell Distribution Width 17.5 % (9.3-17.3); White Blood Count 13.2 T/CUMM (4-12)
[2021-02-08 05:21] LABS: Albumin 1.7 G/DL (3.4-5.0); Osmolality,Calculated 272.1 MOS/KG (273-304); Potassium 3.5 MMOL/L (3.5-5.1); Total Protein 6.6 G/DL (6.4-8.2)
[2021-02-08 06:25] VITALS: BP 100/59
[2021-02-08] MEDS ORDERED: HYDROCORTISONE 100 MG VIAL IV SCH (09:00)
[2021-02-08] MEDS ORDERED: LEVOTHYROXINE 175 MCG TABLET PO SCH (09:00)
[2021-02-08] MEDS: HYDROCORTISONE 100 MG VIAL IV SCH ×2 (10:47→22:21)
[2021-02-08] MEDS: LEVOTHYROXINE 100 MCG VIAL IV SCH (10:51)
[2021-02-08] MEDS: MORPHINE 2 MG/1 ML SYRINGE IV PRN ×2 (10:51→17:45)
[2021-02-08 11:21] LABS: Bilirubin,Urine Negative (Negative); Blood, Urine Negative (Negative); Glucose,Urine (UA) Negative (Negative); Ketones,Urine 80 mg/dL (Negative); Mucus,Urine Many /LPF (Occasional); Nitrite,Urine Negative (Negative); Protein,Urine 30 MG/DL; RBC,Urine 1 /HPF (0-4); Urine Appearance CLEAR (Clear); Urine Color Amber (Yellow); Urine Specific Gravity 1.057 (1.001-1.035)
[2021-02-08] MEDS: PANTOPRAZOLE 40 MG VIAL IV SCH (16:53)
[2021-02-08] MEDS: oxyCODONE/ACETAMINOPHEN 5-325 MG TABLET PO PRN ×2 (16:54→20:34)
[2021-02-08] MEDS: AMITRIPTYLINE 50 MG TABLET PO SCH (20:34)
[2021-02-09] MEDS: LACTATED RINGERS 1,000 ML IV SCH (00:57)
[2021-02-09] MEDS: MORPHINE 2 MG/1 ML SYRINGE IV PRN (04:40)
[2021-02-09 05:03] LABS: Basophils % 0.2 % (0.0-0.8); Hematocrit 30.7 VOL% (42.0-52.0); Hemoglobin 9.1 GM/DL (14.0-18.0); Immature Granulocytes % 0.7 %; Immature Granulocytes Absolute 0.04 #; Lymphocytes # 0.4 10*3/uL (1.4-4.0); Mean Corpuscular HGB Conc 29.6 GM/DL (32-36); Mean Corpuscular Volume 94.8 FL (87-102); Mean Platelet Volume 9.7 FL (9.6-12.0); Monocytes % 5.3 % (1.7-12.7); Neutrophils % 87.8 % (38.7-73.9); Platelet Count 179 T/CUMM (130-400); Red Blood Count 3.24 MC/CUMM (3.8-5.5); Red Cell Distribution Width 17.6 % (9.3-17.3); White Blood Count 5.8 T/CUMM (4-12)
[2021-02-09 05:13] LABS: Calcium 8.1 MG/DL (8.5-10.1); Potassium 3.8 MMOL/L (3.5-5.1)
[2021-02-09] MEDS: LEVOTHYROXINE 100 MCG VIAL IV SCH (06:30)
[2021-02-09] MEDS: HYDROCORTISONE 100 MG VIAL IV SCH (09:46)
[2021-02-12] MEDS ORDERED: LEVOTHYROXINE 175 MCG TABLET PO SCH (07:00)
== END 2021-02-09 10:42 | disposition hospice, home (50) | DRG 435 ==
LOC: N.ED 14:35 → N.EDINP 16:52 → N.CC 17:59
PROVIDERS: ADMIT Internal Medicine; ATTEND Internal Medicine